=== PATIENT | male | born 1945 | race Caucasian/White ===

== ENCOUNTER 2020-09-05 10:59 | Emergency (ER) | payer MEDICARE, MEDICAID, SELFPAY ==
[2020-09-05] VITALS (7 sets, daily range): BP systolic 111–199; BP diastolic 78–97; PULSE 56–63; RESP 14–54; TEMP 37.1; O2SAT 95–98; BMI 40.2
--- NOTE | 2020-09-05 11:15 | XR_ITS ---
WS: [id number] Exam: XR chest 1V portable [id number] Date/Time of Exam: 09/05/2020 11:15 AM Reason For Exam: chest pain No priors. The lungs are clear and fully expanded. Minimal plaque atelectasis left base. Normal cardiomediastina l structures and bony elements. XR/XR chest 1V portable [id number] IMPRESSION: 1. No acute cardiopulmonary finding.
--- NOTE | 2020-09-05 11:16 | ECG_ITS ---
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 Measurements Intervals [place] Rate: 60 P: 40 [place]: 212 QRS: -55 QRSD: 125 T: 83 QT: 402 QTc: 404 Interpretive Statements SINUS RHYTHM WITH FIRST DEGREE AV BLOCK LEFT ANTERIOR FASCICULAR BLOCK [QRS AXIS <= -45, QR IN I, RS IN II] MODERATE VOLTAGE CRITERIA FOR LVH, CONSIDER NORMAL VARIANT [MEETS CRITERIA IN ONE OF: R(aVL), S(V1), R(V5), R(V5/V6)+S(V1)] LATERAL MYOCARDIAL INFARCTION , PROBABLY RECENT [40+ ms Q WAVE AND/OR ST/T ABNORMALITY IN I/aVL/V5/V6] ACUTE RI No previous ECG available for comparison Electronically Signed On 09-05-2020 23:49:00 BAG BUILDER by Sasha Polk M.D. [email or web address]/store/[id number]
[2020-09-05 12:22] LABS: Basophils # 0.1 10^3/uL (0.0-0.1); Basophils % 0.7 %; Eosinophils # 0.2 10^3/uL (0.0-0.8); Eosinophils % 2.5 %; Hematocrit 52.1 % (42.0-52.0); Hemoglobin 17.2 g/dL (11.7-16.6); Lymphocytes # 2.1 10^3/uL (0.8-4.8); Lymphocytes % 31.8 %; Mean Corpuscular Hemoglobin 30.1 pg (28.0-34.0); Mean Corpuscular Volume 91.1 fL (80-94); Monocytes # 0.4 10^3/uL (0.2-0.9); Monocytes % 6.3 %; Neutrophils # 3.93 10^3/uL (1.8-7.7); Neutrophils % 58.6 %; Nucleated Red Blood Cells % 0 %; Platelet Count 173 10^3/cmm (130-400); Red Blood Count 5.72 10^6/uL (4.1-5.3); White Blood Count 6.7 10^3/uL (4.0-10.0)
--- NOTE | 2020-09-05 12:24 | ED_ITS ---
HPI - Chest Pain General: Chief Complaint: Chest Pain Stated Complaint: CHEST PAINS, SENT FROM DR ALBERTS Time Seen by Provider: 09/05/20 12:03 History of Present Illness: HPI narrative: 75-year-old male presents emergency room from his primary care physician's office. He had been having chest pain intermittently for the last 6 weeks. Usually associated with activity he does in his yard such as light work feeding animals. Resolves in 5 to 30 minutes he has really noticed anything that makes it better or worse. He had been associating it with stomach upset. He was at his primary care doctor today to start the process to get evaluated for a hearing aid and was noted to have high blood pressure and upon further review his primary care provider listed that he been having chest pain. He was referred here he does have a slightly abnormal EKG it appears to be due to LVH. He is not having chest pain at this time. 2 years ago he had a stress test that he reports was normal he had no further follow-up from there. Not been taking anything for blood pressure recently. MD complaint: chest pain Onset (ago): week(s) Timing of current episode: episodic Prior episodes: Yes Onset: during exertion Pain location: left chest Pain radiation: back Severity: moderate Quality: heaviness Relieving factors: rest Exacerbating factors: exertion Associated symptoms: Deny abdominal pain, diaphoresis, dyspnea, fever(s), leg edema, nausea, palpitations, sense of impending doom, syncope or vomiting Treatment prior to arrival: none Review of Systems Const: Denies: fever(s) or diaphoresis ENMT: Denies: throat pain, ear or mastoid pain, nasal discharge or nasal congestion Card: Denies: palpitations or syncope Resp: Denies: dyspnea GI: Denies: abdominal pain, nausea or vomiting : Denies: flank pain, dysuria, urinary frequency or urinary urgency Skin/Breast: Denies: rash or pruritus PFSH ED PFSH: Medical History Hiatal hernia 1980s Psoriasis Surgical History History of tonsillectomy and adenoidectomy Social History Smoking and tobacco status: former smoker Alcohol intake: never Physical Exam Const: COMMON NORMALS: no acute distress GENERAL APPEARANCE: cooperative and comfortable ORIENTATION/CONSCIOUSNESS: Yes awake, Yes oriented to person, Yes oriented to place and Yes oriented to time HENMT: COMMON NORMALS: normocephalic, atraumatic and hearing grossly normal bilaterally HEAD & SCALP: normocephalic and atraumatic Eye: COMMON NORMALS: Equal, round and reactive pupils present, EOMs intact bilaterally, conjunctivae normal and no scleral icterus CONJUNCTIVA: Yes conjunctivae normal PUPIL: Yes Equal, round and reactive pupils present Neck/C-Spine: COMMON NORMALS: no JVD Lymph: LYMPHATIC: no lymphadenopathy noted and no lymphedema noted Resp: COMMON NORMALS: normal respiratory effort, No retractions, No use of accessory muscles and clear to auscultation bilaterally AUSCULTATION: clear to auscultation bilaterally Cardio: COMMON NORMALS: no JVD, regular rate, regular rhythm and No murmurs present (Cardio) RATE: regular rate RHYTHM: regular rhythm GI: COMMON NORMALS: Soft to palpation and No hepatosplenomegaly present AUSCULTATION: Yes normoactive bowel sounds PALPATION: Yes Soft to palpation, No Tenderness to palpation present (GI), No Guarding due to palpation present (GI) and Yes No hepatosplenomegaly present Extremity: COMMON NORMALS: normal to inspection, capillary refill normal, no clubbing, cyanosis or edema, no calf tenderness and no pedal edema Neuro: SENSORIUM/ORIENTATION: Yes oriented to person, Yes oriented to place and Yes oriented to time Skin: COMMON NORMALS: no rashes or lesions noted GENERAL SKIN EXAM: no rashes or lesions noted Course Vital Signs: Vital signs: Vital Signs Temperature 98.7 F 09/05/20 11:21 Pulse Rate 60 09/05/20 12:15 Respiratory Rate 16 09/05/20 12:15 Blood Pressure 155/89 09/05/20 12:15 Pulse Oximetry 97 09/05/20 12:15 MDM - Chest Pain MDM Narrative: Medical decision making narrative: Serial troponins are negative. Patient would prefer to go home fact he is quite upset that he is even been here this long. Discussed with him we had to do to test 2 hours apart in order to clear him initially. We will discharge him home on isosorbide mononitrate as well as sublingual nitro as needed for breakthrough chest pain if he has breakthrough chest pain he should return. Should also do an aspirin daily. Case management will set up an outpatient sestamibi stress test Lab Data: Labs: Lab Results 09/05/20 09/05/20 09/05/20 Range/Units 12:13 12:13 12:13 WBC 6.7 (4.0-10.0) 10^3/ uL RBC 5.72 H (4.1-5.3) 10^6/u L Hgb 17.2 H (11.7-16.6) g/dL Hct 52.1 H (42.0-52.0) % MCV 91.1 (80-94) fL MCH 30.1 (28.0-34.0) pg MCHC 33.0 (30.0-36.0) g/dL RDW 13.0 (12.1-15.1) % Plt Count 173 (130-400) 10^3/c mm MPV 9.0 (7.4-10.4) fL Neut % (Auto) 58.6 % Lymph % (Auto) 31.8 % Kingfisher % (Auto) 6.3 % Eos % (Auto) 2.5 % Baso % (Auto) 0.7 % Neut # (Auto) 3.93 (1.8-7.7) 10^3/u L Lymph # (Auto) 2.1 (0.8-4.8) 10^3/u L King[place]isher # (Auto) 0.4 (0.2-0.9) 10^3/u L Eos # (Auto) 0.2 (0.0-0.8) 10^3/u L Baso # (Auto) 0.1 (0.0-0.1) 10^3/u L Nucleated RBC % (a uto) 0 % Nucleated RBCs # 0.0 /100WBC Sodium 139 (136-145) mmol/L Potassium 4.5 (3.5-5.1) mmol/L Chloride 105 (98-107) mmol/L Carbon Dioxide 26 (22-29) mmol/L Anion Gap 12.5 (5-19) BUN 12 (8-23) mg/dL Creatinine 0.9 (0.7-1.2) mg/dL GFR Calculation Not Reportable Glucose 106 (65-115) mg/dL Calculated Osmolal ity 288 (285-295) mOsm/k g Calcium 9.1 (8.5-10.5) mg/dL Total Bilirubin 0.5 (0.15-1.2) mg/dL AST 16 (0-40) U/L ALT 14 (0-41) U/L Alkaline Phosphata se 93 (40-130) IU/L Creatine Kinase 89 (39-308) U/L Troponin T Baselin e 15 (0-15) ng/L Troponin T 120 Min hiren (0-15) ng/L Delta Troponin T (0-10) ABS# Total Protein 6.6 (6.6-8.7) g/dL Albumin 4.1 (3.5-5.2) g/dL Globulin 2.5 (1.3-4.6) g/dL 09/05/20 Range/Units 13:59 WBC (4.0-10.0) 10^3/ uL RBC (4.1-5.3) 10^6/u L Hgb (11.7-16.6) g/dL Hct (42.0-52.0) % MCV (80-94) fL MCH (28.0-34.0) pg MCHC (30.0-36.0) g/dL RDW (12.1-15.1) % Plt Count (130-400) 10^3/c mm MPV (7.4-10.4) fL Neut % (Auto) % Lymph % (Auto) % King[place]isher % (Auto) % Eos % (Auto) % Baso % (Auto) % Neut # (Auto) (1.8-7.7) 10^3/u L Lymph # (Auto) (0.8-4.8) 10^3/u L [place] # (Auto) (0.2-0.9) 10^3/u L Eos # (Auto) (0.0-0.8) 10^3/u L Baso # (Auto) (0.0-0.1) 10^3/u L Nucleated RBC % (a uto) % Nucleated RBCs # /100WBC Sodium (136-145) mmol/L Potassium (3.5-5.1) mmol/L Chloride (98-107) mmol/L Carbon Dioxide (22-29) mmol/L Anion Gap (5-19) BUN (8-23) mg/dL Creatinine (0.7-1.2) mg/dL GFR Calculation Glucose (65-115) mg/dL Calculated Osmolal ity (285-295) mOsm/k g Calcium (8.5-10.5) mg/dL Total Bilirubin (0.15-1.2) mg/dL AST (0-40) U/L ALT (0-41) U/L Alkaline Phosphata se (40-130) IU/L Creatine Kinase (39-308) U/L Troponin T Baselin e (0-15) ng/L Troponin T 120 Min hiren 14.70 (0-15) ng/L Delta Troponin T -0.30 L (0-10) ABS# Total Protein (6.6-8.7) g/dL Albumin (3.5-5.2) g/dL Globulin (1.3-4.6) g/dL Discharge Plan Discharge Patient Disposition: Home Clinical Impression: Hypertension, Angina pectoris Condition: Stable Prescriptions: New isosorbide mononitrate 30 mg tablet extended release 24 hr 30 mg PO DAILY Qty: 30 RF: 0 Aspirin Childrens 81 mg tablet,chewable 81 mg PO DAILY Qty: 30 RF: 0 nitroglycerin 0.4 mg tablet, sublingual 0.4 mg sublingual Q5M PRN (Reason: chest pain) Qty: 30 RF: 0 No Action betamethasone, augmented 0.05 % cream See Rx Instructions .ROUTE .COMPLEX RF: 0 Discharge Orders: Discharge ED (Routine); Ordered 09/05/20 Ordered By: Tod Araujo Referrals: Jessica Wilcox DO [Primary Care Provider] - Discharge Diet: Usual diet Discharge Activity: Limit activity as instructed Activity Restrictions/Additional Instructions: No strenuous activity until after cardiac evaluation is complete. You were started on isosorbide mononitrate and aspirin take both daily. Use sublingual nitro if you have further chest discomfort. Case management will call to set up a stress test. Coding Level of Care Code ED C[employer] Bi Developer for Rachid Fwd Exam Comprehensive
[2020-09-05 12:49] LABS: Troponin(5th) Baseline 15 ng/L (0-15)
[2020-09-05 12:51] LABS: Alanine Aminotransferase 14 U/L (0-41); Albumin Level 4.1 g/dL (3.5-5.2); Alkaline Phosphatase 93 IU/L (40-130); Aspartate Amino Transferase 16 U/L (0-40); Blood Urea Nitrogen 12 mg/dL (8-23); Calcium 9.1 mg/dL (8.5-10.5); Carbon Dioxide 26 mmol/L (22-29); Chloride 105 mmol/L (98-107); Creatine Phosphokinase 89 U/L (39-308); Globulin 2.5 g/dL (1.3-4.6); Glucose 106 mg/dL (65-115); Osmolality Calculated 288 mOsm/kg (285-295); Sodium 139 mmol/L (136-145); Total Bilirubin 0.5 mg/dL (0.15-1.2); Total Protein 6.6 g/dL (6.6-8.7)
[2020-09-05 13:16] LABS: Anion Gap 12.5 (5-19); Potassium 4.5 mmol/L (3.5-5.1)
--- NOTE | 2020-09-05 13:16 | ECG_ITS ---
[facility] Test Date: 2020-09-05 Pat Name: Terrence Cooper Department: Room: Gender: Male Principal Solutions Architect: : 1945 Requested By: Tod Diaz Order Number: [id number] Genaro MD: Sasha Polk M.D. Measurements Intervals [place] Rate: 56 P: 27 [place]: 199 QRS: -46 QRSD: 124 T: 100 QT: 384 QTc: 374 Interpretive Statements SINUS BRADYCARDIA LEFT ANTERIOR FASCICULAR BLOCK [QRS AXIS <= -45, QR IN I, RS IN II] MODERATE VOLTAGE CRITERIA FOR LVH, CONSIDER NORMAL VARIANT [MEETS CRITERIA IN ONE OF: R(aVL), S(V1), R(V5), R(V5/V6)+S(V1)] POSSIBLE LATERAL MYOCARDIAL INFARCTION , OF INDETERMINATE AGE [30 ms Q WAVE IN I/aVL/V5/V6] Compared to ECG 09/05/2020 12:03:38 Sinus rhythm no longer present First degree AV block no longer present Myocardial infarct finding still present Electronically Signed On 09-06-2020 0:02:34 NURSING TECHN by Sasha Polk M.D. [id number]
[2020-09-05] MEDS: aspirin 81 mg Chew Tablet 324 MG PO (14:37)
--- NOTE | 2020-09-07 10:13 | DCPLANNER ---
script manager had message to schedule an out patient stress test for patient. script manager faxed order for stress test to centralized scheduling.
--- NOTE | 2020-09-19 08:32 | DCPLANNER ---
Patient has a follow up appointment scheduled for Friday, September 29, 2020 at 12:15 for a out patient stress test.
--- NOTE | 2020-09-22 11:31 | DCPLANNER ---
Patient has a follow up appointment scheduled for September at 1:[address] Pérez. Clinic will call patient with appointment information.
--- NOTE | 2020-10-12 13:57 | DCPLANNER ---
Patient had a follow up appointment scheduled for 09.29.20 for an out patient stress test - patient did attend appointment. Patient had a follow up appointment scheduled for 10.05.20 with heart care - patient did attend appointment.
== END 2020-09-05 15:25 | disposition home or self-care (01) ==
PROVIDERS: Emergency Provider Family Medicine; PCP Family Medicine
DX: I10 Essential (primary) hypertension (principal); I20.9 Angina pectoris, unspecified; Z87.891 Personal history of nicotine dependence
CPT/HCPCS: 12345; 36415; 71045; 80053; 82550; 84484; 85025; 93005; 99283; 99284

== ENCOUNTER 2020-09-29 09:02 | Outpatient (CLI) | payer MEDICARE, MEDICAID, SELFPAY ==
[2020-09-29 09:48] VITALS: BMI 40.4
--- NOTE | 2020-09-29 09:48 | ECG_ITS ---
[facility] Test Date: 2020-09-29 Pat Name: Terrence Cooper Department: Room: Gender: Male Order Dispatcher: : 1945 Requested By: Tod Diaz Order Number: [id number] Genaro MD: ADAM MURPHY Interpretive Statements NAME OF STUDY: LEXISCAN SESTAMIBI STRESS TEST INDICATION: Chest Pain, NOTE: Please note that this is the electrocardiogram portion of the Lexiscan/Sestamibi stress test. The perfusion scan will be documented separately. DATA: Baseline heart rate was 58 beats per minute. Baseline blood pressure was 145/81 millimeters of mercury. Target heart rate was 145. Maximum heart rate achieved was 92. which was 63 % of the predicted target heart rate. Maximum blood pressure was 154/85 millimeters of mercury. The reason for ending the test was completion of the protocol. The patient did not experience any symptoms. ELECTROCARDIOGRAM: BASELINE: Sinus rhythm. Left axis. Otherwise, no ST-T changes suggestive of ischemia noted. No arrhythmia noted. After Lexiscan injection, no ST-T changes suggestive of ischemic noted. No arrhythmia noted. CONCLUSION: Please note due to baseline abnormality of the EKG specificity and sensitivity of the EKG portion of LexiScan MIBI stress test will be low 1. EKG not suggestive of ischemia 2. Lexiscan injection unremarkable. 3. Perfusion scan will be documented separately. Electronically Signed On 09-29-2020 13:28:55 STRATEGIC SOURCING SPECIALIST by ADAM MURPHY [email or web address])/store/[id number]
--- NOTE | 2020-09-29 09:49 | NMCV_ITS ---
NM issa perf SPECT r/s* [id number] Terrence Cooper Age: 75 Gender: M : 1945 Exam Date: 09/29/2020 11:03 Ordering Phys: Tod Araujo DO Technologist: CHIKI Nichols Exam Location: [facility] Indications: CHEST PAIN STRESS TEST Please see separate stress test report in [facility] for full findings IMAGE PROTOCOL Rest/Stress 1 Lexiscan Day Radiopharmaceutical Dose (mCi) Administration Site Administered by Rest: Tc-99m 10.8 IV CHIKI Mckeon Sestamibi Stress:Tc-99m 32.2 IV CHIKI Nichols Sestamiisatu Rest: 29-Sep-2020 60 Discovery 630 Stress: 29-Sep-2020 30 Discovery 630 0.4mg Lexiscan. Images obtained in supine and prone position. SPECT RESULTS Technical Quality: Excellent Raw Data Analysis: Normal Image Corrections: No attenuation or motion correction applied Summed Stress Score: 2 Summed Rest Score: 8 Summed Difference Score: 0 PERFUSION FINDINGS Small area of fixed perfusion defect noted in mid anterior/anteroseptal and apical lateral wall suggestive of old myocardial infarction versus scarring. No significant ischemia noted. FUNCTIONAL RESULTS (calculated via Gated SPECT) Stress Image LV EF (%): 48 Stress EDV (mL):167 TID: 0.99 Stress ESV (mL):87 Rest Image LV EF (%): 48 FUNCTIONAL FINDINGS: Global hypokinesis with mid anterior wall regional wall motion abnormality. IMPRESSIONS Small area of old myocardial infarction versus scarring noted in mid anterior/anteroseptal and apical lateral wall suggestive of old myocardial infarction versus scarring without significant rizwan-infarct ischemia. The study is negative for ischemia. EKG segment will be documented separately. Dante Neil MD (Electronically Signed) Final Date: 29 September 2020 13:18 S
[2020-09-29] MEDS: regadenoson 0.4 Mg/5 ml Syringe IVP (11:31)
[2020-09-29 11:45] VITALS: BP 148/76; PULSE 83
== END 2020-09-29 09:03 | disposition home or self-care (01) ==
LOC: CDL 09:04
PROVIDERS: PCP Family Medicine; Visit Provider Family Medicine
DX: R07.9 Chest pain, unspecified (principal); I25.2 Old myocardial infarction
CPT/HCPCS: 78452; 93017; A9500; J2785

== ENCOUNTER 2020-09-29 09:06 | Outpatient (CLI) | payer MEDICARE, MEDICAID, SELFPAY ==
--- NOTE | 2020-09-29 14:15 | USCV_ITS ---
Terrence Cooper Age: 75 Gender: M : 1945 Exam Date: 09/29/2020 10:21 Ordering Phys: Emiliana El MD Technologist: Trina Betancourt [place] [facility] [place]: HYPERTENSION BP: 143 / 67 HR: 79 Rhythm: Sinus Technical Quality: Adequate MEASUREMENTS (Male / Female) Normal Values 2D ECHO LV Diastolic Diameter PLAX 4.0 cm 4.2 - 5.9 / 3.9 - 5.3 cm LV Systolic Diameter PLAX 2.6 cm LV Chamber Size 3.3 cm IVS Diastolic Thickness 1.9 cm 0.6 - 1.0 / 0.6 - 0.9 cm IVS Systolic Thickness 2.0 cm LVPW Diastolic Thickness 2.6 cm 0.6 - 1.0 / 0.6 - 0.9 cm LVPW Systolic Thickness 2.3 cm RV Chamber Size 3.3 cm LVOT Diameter 2.1 cm LV Ejection Fraction 2D Teich 64.7 % LV Ejection Fraction MOD 2C 61.2 % LV Ejection Fraction 2C AL 64.4 % LA Diameter 4.4 cm LA Width 3.5 cm LA Height 5.0 cm RA Width 4.1 cm RA Height 4.6 cm Aorta at Sinotubular Diameter 3.7 cm M-MODE LV Diastolic Diameter MM 4.7 cm 4.2 - 5.9 / 3.9 - 5.3 cm LV Systolic Diameter MM 3.2 cm LV Ejection Fraction MM Teich 60.3 % IVS Diastolic Thickness MM 1.3 cm 0.6 - 1.0 / 0.6 - 0.9 cm IVS Systolic Thickness MM 1.7 cm LVPW Diastolic Thickness MM 1.4 cm 0.6 - 1.0 / 0.6 - 0.9 cm LVPW Systolic Thickness MM 1.9 cm Aortic Annulus Diameter 3.7 cm LA Ao Ratio MM 1.3 MV E Point Septal Separation 0.7 cm DOPPLER AV Peak Velocity 135.0 cm/s LVOT Peak Velocity 97.0 cm/s AV Area Cont Eq vti 2.8 cm squared AV Area Cont Eq pk 2.4 cm squared MV Area PHT 2.4 cm squared Mitral E to A Ratio 0.9 MV E' Velocity 33.5 cm/s Mitral E to MV E' Ratio 7.3 Mitral E to LV E' Lateral Ratio 7.4 Mitral E to LV E' Septal Ratio 7.2 TR Peak Velocity 212.5 cm/s TR Peak Gradient 18.1 mmHg TV Peak E Velocity 67.0 cm/s Right Atrial Pressure 3.0 mmHg Pulmonary Artery Systolic Pressu 21.1 mmHg PV Peak Velocity 80.0 cm/s RV Acceleration Time 0.2 s RV Ejection Time 0.4 s RV AcT/ET 0.5 FINDINGS Left Ventricle Normal left ventricular cavity size. Normal left ventricular systolic function. No regional wall motion abnormalities. Left ventricular ejection fraction is estimated at 60 %. Grade I/IV diastolic dysfunction (abnormal relaxation filling pattern), normal to mildly elevated filling pressures. Right Ventricle The right ventricle is normal in size and function. Right Atrium The right atrium is normal in size. Left Atrium The left atrium is normal in size. Mitral Valve Structurally normal mitral valve without significant stenosis or prolapse. There is no mitral regurgitation. Aortic Valve Mild aortic valve calcification. No aortic valve stenosis. Mild- to-moderate aortic valve regurgitation. Tricuspid Valve Structurally normal tricuspid valve without significant stenosis or regurgitation. Pulmonary artery systolic pressure is normal. Pulmonic Valve Structurally normal pulmonic valve without significant stenosis. There is no pulmonic regurgitation. Pericardium Normal pericardium without effusion. Aorta Normal ascending aorta dimension. CONCLUSIONS 1-Normal left ventricular cavity size. Normal left ventricular systolic function. No regional wall motion abnormalities. Left ventricular ejection fraction is estimated at 60 %. Grade I/IV diastolic dysfunction (abnormal relaxation filling pattern), normal to mildly elevated filling pressures. 2-Mild aortic valve calcification. No aortic valve stenosis. [id number] aortic valve regurgitation. 3-There is no pericardial effusion. 4-Pulmonary artery systolic pressure is within normal limits. 5-Right atrial pressure is around 5 mm of mercury. 6-There are no prior echocardiogram studies to compare. Dante Neil MD (Electronically Signed) Final Date: 29 September 2020 16:20 S
== END 2020-09-29 09:07 | disposition home or self-care (01) ==
LOC: RAD 09:12
PROVIDERS: PCP Family Medicine; Visit Provider Family Medicine
DX: I10 Essential (primary) hypertension (principal); I35.1 Nonrheumatic aortic (valve) insufficiency
CPT/HCPCS: 93306

== ENCOUNTER 2020-11-15 14:55 | Outpatient (CLI) | payer MEDICARE, MEDICAID, SELFPAY ==
--- NOTE | 2020-11-15 15:45 | USCV_ITS ---
Kenneth Terrence Age: 75 Gender: M : 1945 Exam Date: 11/15/2020 15:05 Ordering Phys: Emiliana El MD Technologist: Trina Betancourt [place] [facility] [place]: [place] dependence Risk Factors: Previous Vascular Surgery: Right Brachial BP: / Left Brachial BP: / Right Left Velocity (cm/s) Spectral Plaque Velocity (cm/s) Spectral Plaque Syst/Diast Broadening Syst/Diast Broadening 72.60/ 15.40 Prox CCA 100.00/ 13.60 79.50/ 17.90 Mid CCA 85.20 / 25.90 71.80/ 8.50 Distal CCA 81.50 / 19.70 86.90/ 16.30 Prox ICA 55.50 / 18.50 59.50/ 16.70 Mid ICA 91.30 / 24.70 60.60/ 18.80 Distal ICA 82.70 / 17.30 162.90 ECA 135.80 1.09 ICA/CCA 1.07 Antegrade Vertebral Antegrade 70.40/ 21.00 cm/s 96.30/ 21.00 cm/s Tri Subclavian Tri 98.70 97.50 CONCLUSIONS Right ICA stenosis <50%. Left ICA stenosis <50%. Normal antegrade Doppler flow noted in the right vertebral artery. Normal antegrade Doppler flow noted in the left vertebral artery. Eloy Michaud MD (Electronically Signed) Final Date: 16 November 2020 17:02 S
== END 2020-11-15 14:56 | disposition home or self-care (01) ==
LOC: RAD 15:00
PROVIDERS: PCP Family Medicine; Visit Provider Family Medicine
DX: Z87.891 Personal history of nicotine dependence (principal); I65.23 Occlusion and stenosis of bilateral carotid arteries
CPT/HCPCS: 93880

== ENCOUNTER → 2020-12-07 09:58 | Outpatient (BNVA) | payer MEDICARE, MEDICAID, SELFPAY | PROVIDERS: PCP Family Medicine; Visit Provider Family Medicine | DX: Z01.812 Encounter for preprocedural laboratory examination (principal) | CPT/HCPCS: 87635 ==

== ENCOUNTER 2020-12-11 08:44 | Outpatient (CLI) | payer MEDICARE, MEDICAID, SELFPAY ==
--- NOTE | 2020-12-11 09:31 | PFTS_ITS ---
Date of Study:12/11/20 Date of Dictation: MECHANICS: Forced vital capacity (FVC) is normal. Forced expiratory volume in one second (FEV1) is normal. FEV1/FVC is normal. FLOW VOLUME LOOP: Normal. LUNG VOLUMES: Total lung capacity (TLC) is normal. Residual volume (RV) is normal. DIFFUSING CAPACITY FOR CARBON MONOXIDE: Normal. INTERPRETATION: The prebronchodilator spirometry is normal. The lung volumes are normal. Gas exchange (DLCO) is normal. MTDD
== END 2020-12-11 08:45 | disposition home or self-care (01) ==
LOC: RT 08:47
PROVIDERS: PCP Family Medicine; Visit Provider Family Medicine
DX: R06.02 Shortness of breath (principal); Z87.891 Personal history of nicotine dependence
CPT/HCPCS: 94010; 94726; 94729

== ENCOUNTER 2021-11-22 16:14 | Emergency (ER) | payer MEDICARE, MEDICAID, SELFPAY ==
[2021-11-22 16:24] VITALS: BP 134/78; PULSE 112; RESP 16; TEMP 38; O2SAT 93; BMI 38.0
--- NOTE | 2021-11-22 17:20 | ED_ITS ---
Documented by User: JARED George 11/22/21 23:33 HPI - Male Genitourinary General: Chief complaint: Urogenital-Male Stated complaint: blood in urine Time Seen by Provider: 11/22/21 17:17 Source: patient Mode of arrival: ambulatory Limitations: no limitations History of Present Illness: Patient is a 76-year-old male who presents to ED today along with his for concerns of hematuria that began today. Patient is not complaining of any burning with urination. He has no flank pain. Patient states he chronically has nighttime urination and frequent urination that he attributes to old age . states he has been complaining of chills. He did have low-grade fever upon arrival to the ED at 100.4. States he is having some mild epigastric/upper abdominal pain. He states in the he was diagnosed with a hiatal hernia and states 2 weeks ago he got choked up on a food bolus states since that time he is having some soreness. She does not have any chest pain or shortness of breath. He does report chronic shortness of breath with exertion and a nonproductive cough following a COVID infection in July 2020. This is not changed at all. MD Complaint: other (hematuria) Onset (ago): hour(s) Exacerbating factors: none Associated symptoms: Reports hematuria; Deny dysuria, nausea or vomiting Review of Systems Const: Reports: fever(s) and chills; Denies: body aches, change in appetite, fatigue or malaise Eyes: Denies: change in vision or blurry vision ENMT: Denies: throat pain, odynophagia, nasal discharge or nasal congestion Card: Reports: dyspnea on exertion (chronic since COVID in July 2020); Denies: chest pain, palpitations, irregular heart rhythm, edema, swelling of feet/ankles, lightheadedness, syncope or pre-syncope Resp: Reports: non-productive cough (chronic since COVID in July 2020); Denies: dyspnea, wheezing, hemoptysis or chest congestion GI: Reports: abdominal pain; Denies: nausea, vomiting or diarrhea : Reports: nocturia (chronic) and hematuria; Denies: flank pain, difficulty urinating, dysuria, urinary frequency, urinary urgency, testicular pain, testicular mass or scrotal swelling Musc: Denies: neck pain, back pain, extremity pain or joint pain Skin/Breast: Denies: rash Neuro: Denies: headache(s), numbness in extremities, weakness in extremities or sensory changes PFSH ED PFSH: Medical History CAD (coronary artery disease) Diastolic CHF Hiatal hernia 1980s Psoriasis Surgical History History of tonsillectomy and adenoidectomy Social History Smoking and tobacco status: former smoker Alcohol intake: never Physical Exam Const: COMMON NORMALS: no acute distress, patient oriented x3, no limitations and alert GENERAL APPEARANCE: cooperative NUTRITIONAL APPEARANCE: overweig ht ORIENTATION/CONSCIOUSNESS: Yes awake, Yes oriented to person, Yes oriented to place and Yes oriented to time OTHER: obviously jaundiced HENMT: COMMON NORMALS: normocephalic and atraumatic HEAD & SCALP: normocephalic and atraumatic Eye: SCLERA: scleral abnormal Neck/C-Spine: COMMON NORMALS: full ROM, no lymphadenopathy and no meningeal signs Resp: COMMON NORMALS: normal respiratory effort and clear to auscultation bilaterally AUSCULTATION: clear to auscultation bilaterally Cardio: COMMON NORMALS: regular rhythm RATE: tachycardic (pt mildly febrile) RHYTHM: regular rhythm GI: COMMON NORMALS: Normal to inspection, nondistended, normoactive bowel sounds present, Soft to palpation, No hepatosplenomegaly present and no masses INSPECTION: Yes normal to inspection AUSCULTATION: Yes normoactive bowel sounds PALPATION: Yes Soft to palpation, Yes Tenderness to palpation present (GI) (mild upper abdominal pain-non surgical exam) and Yes No hepatosplenomegaly present : COMMON NORMALS: Yes no CVA tenderness BLADDER/KIDNEY EXAM: Yes no CVA tenderness Back/Pelvis: COMMON NORMALS: no CVA tenderness Extremity: COMMON NORMALS: normal to inspection GENERAL: Yes normal exam except as noted Neuro: ADDISON COMA SCALE: document GCS findings Cedar coma scale eye opening: Spontaneous Cedar coma scale verbal response: Orientated Cedar coma scale motor response: Obey commands Addison coma scale total score: 15 COMMON NORMALS: patient oriented x3, moves all extremities, no focal motor deficits and no sensory deficits noted SENSORIUM/ORIENTATION: Yes alert, Yes oriented to person, Yes oriented to place and Yes oriented to time MENINGEAL SIGNS: Yes no meningeal signs Skin: COMMON NORMALS: no rashes or lesions noted GENERAL SKIN EXAM: no rashes or lesions noted and jaundice Course ED course: Patient's bilirubin coming back critically elevated at 12.0. He has elevated liver enzymes. Pending lipase. My suspicion is that patient's hematuria he felt like he was visualizing was actually excess bilirubin. Will order CT abdomen/pelvis and US gallbladder for further evaluation. Vital Signs: Vital signs: Vital Signs Temperature 98.2 F 11/22/21 20:54 Pulse Rate 89 11/22/21 20:54 Respiratory Rate 18 11/22/21 20:54 Blood Pressure 125/65 11/22/21 20:54 Pulse Oximetry 92 11/22/21 20:54 [facility] - Male Medical Decision Making Patient is a nice 76-year-old male here for his initial concern of hematuria. Patient was not having any urinary complaints. On physical exam he is obviously jaundiced. Labs showing a critically elevated bilirubin at 12.0 along with other LFT elevations. His lipase is normal. He does have tenderness to his upper abdomen but surprisingly not as much as I would suspect given his CT findings. Patient has cholelithiasis and choledocholithiasis with CBD dilation of 1.5 cm. He is mildly tachycardic with a low-grade fever. He has a normal white count with normal lactate. At this time patient will need to be transferred to a facility with ERCP capability. I have spoken to [facility] who accepts patient. Case was discussed with Dr. Zambrano who agrees with plan for patient. He also evaluated patient. Lab Data : 11/22/21 17:43 11/22/21 17:43 Radiology Impressions Chest/Abdomen X-ray 11/22/21 17:37 IMPRESSION: No acute findings. Abdomen/Pelvis CT 11/22/21 18:57 IMPRESSION: Cholelithiasis and choledocholithiasis with dilation of common bile duct up to 1.5 cm and mild intrahepatic biliary dilation. COMMENTS: Consistent with the [place] [employer]'s Incidental Findings Committee white paper (J Am Elidia Radiol 2018): Any incidental renal lesion less than 1 cm or classified as too small to characterize, or any incidental cystic renal lesion characterized as simple-appearing, is likely benign. No follow-up imaging is recommended for these lesions per consensus recommendations based on imaging criteria. Gallbladder Ultrasound 11/22/21 18:57 IMPRESSION: Cholelithiasis with dilation of the common bile duct. Please see same day CT report which demonstrates choledocholithiasis. Laboratory Results WBC 8.3 10^3/uL (4.0-10.0) 11/22/21 17:43 RBC 5.72 10^6/uL (4.1-5.3) H 11/22/21 17:43 Hgb 17.3 g/dL (11.7-16.6) H 11/22/21 17:43 Hct 50.7 % (42.0-52.0) 11/22/21 17:43 MCV 88.6 fl (80-94) 11/22/21 17:43 MCH 30.2 pg (28.0-34.0) 11/22/21 17:43 MCHC 34.1 g/dL (30.0-36.0) 11/22/21 17:43 RDW 14.1 % (12.1-15.1) 11/22/21 17:43 Plt Count 230 10^3/cmm (130-400) 11/22/21 17:43 MPV 9.0 fL (7.4-10.4) 11/22/21 17:43 Neut % (Auto) 82.6 % 11/22/21 17:43 Lymph % (Auto) 8.6 % 11/22/21 17:43 [place] % (Auto) 8.0 % 11/22/21 17:43 Eos % (Auto) 0.0 % 11/22/21 17:43 Baso % (Auto) 0.4 % 11/22/21 17:43 Neut # (Auto) 6.85 10^3/uL (1.8-7.7) 11/22/21 17:43 Lymph # (Auto) 0.7 10^3/uL (0.8-4.8) L 11/22/21 17:43 [place] # (Auto) 0.7 10^3/uL (0.2-0.9) 11/22/21 17:43 Eos # (Auto) 0.0 10^3/uL (0.0-0.8) 11/22/21 17:43 Baso # (Auto) 0.0 10^3/uL (0.0-0.1) 11/22/21 17:43 Nucleated RBC % (auto) 0 % 11/22/21 17:43 Nucleated RBCs # 0.0 /100WBC 11/22/21 17:43 Sodium 135 mmol/L (136-145) L 11/22/21 17:43 Potassium 4.3 mmol/L (3.5-5.1) 11/22/21 17:43 Chloride 100 mmol/L (98-107) 11/22/21 17:43 Carbon Dioxide 18 mmol/L (22-29) L 11/22/21 17:43 Anion Gap 21.3 (5-19) H 11/22/21 17:43 BUN 17 mg/dL (8-23) 11/22/21 17:43 Creatinine 0.8 mg/dL (0.7-1.2) 11/22/21 17:43 GFR Calculation Not Reportable 11/22/21 17:43 Glucose 125 mg/dL (65-115) H 11/22/21 17:43 Calculated Osmolality 283 mOsm/kg (285-295) L 11/22/21 17:43 Lactic Acid 1.2 mmol/L (0.5-2.2) 11/22/21 17:46 Calcium 9.4 mg/dL (8.5-10.5) 11/22/21 17:43 Total Bilirubin 12.0 mg/dL (0.15-1.2) H* 11/22/21 17:43 AST 162 U/L (0-40) H 11/22/21 17:43 ALT 263 U/L (0-41) H 11/22/21 17:43 Alkaline Phosphatase 615 IU/L (40-130) H 11/22/21 17:43 Total Protein 7.3 g/dL (6.6-8.7) 11/22/21 17:43 Albumin 3.9 g/dL (3.5-5.2) 11/22/21 17:43 Globulin 3.4 g/dL (1.3-4.6) 11/22/21 17:43 Lipase 29 U/L (13-60) 11/22/21 17:43 Urine Color Dark yellow (Yellow) 11/22/21 16:30 Urine Appearance Clear (CLEAR) 11/22/21 16:30 Urine pH 5 (5-7) 11/22/21 16:30 Ur Specific [place] 1.020 (1.005-1.030) 11/22/21 16:30 Urine Protein 1+ (Negative) H 11/22/21 16:30 Urine Glucose (UA) Norm (Normal) 11/22/21 16:30 Urine Ketones 1+ (Negative) H 11/22/21 16:30 Urine Blood Neg (Negative) 11/22/21 16:30 Urine Nitrate Negative (Negative) 11/22/21 16:30 Urine Bilirubin 3+ (Negative) H 11/22/21 16:30 Urine Urobilinogen 4+ mg/dL (Negative) H 11/22/21 16:30 Ur Leukocyte Esterase Negative (Negative) 11/22/21 16:30 Urine RBC Rare /hpf (0-2) 11/22/21 16:30 Urine WBC Rare /hpf (0-5) 11/22/21 16:30 Ur Squamous Epith Cells Rare /hpf (0-5) 11/22/21 16:30 Amorphous Sediment 1+ /hpf 11/22/21 16:30 Urine Bacteria None /hpf (NONE) 11/22/21 16:30 Urine Mucus 2+ /hpf 11/22/21 16:30 Discharge Plan Discharge Patient Disposition: Xfer Short-Term Hosp Clinical Impression: Cholelithiasis with choledocholithiasis Condition: Stable Referrals: Emiliana El MD [Primary Care Provider] - Coding Level of Care Code ED Enterprise Sales Person for Chg Fwd Exam Comprehensive Documented by User: Roe Zambrano MD 11/23/21 09:40 HPI - Male Genitourinary General: Chief complaint: Urogenital-Male Stated complaint: blood in urine Time Seen by Provider: 11/22/21 17:17 PFSH ED PFSH: Medical History CAD (coronary artery disease) Diastolic CHF Hiatal hernia 1980s Psoriasis Surgical History History of tonsillectomy and adenoidectomy Social History Smoking and tobacco status: former smoker Alcohol intake: never Physical Exam Neuro: ADDISON COMA SCALE: document GCS findings Addison coma scale total score: 15 Course Vital Signs: Vital signs: Vital Signs Temperature 98.2 F 11/22/21 20:54 Pulse Rate 89 11/22/21 20:54 Respiratory Rate 18 11/22/21 20:54 Blood Pressure 125/65 11/22/21 20:54 Pulse Oximetry 92 11/22/21 20:54 [facility] - Male Medical Decision Making Patient is a nice 76-year-old male here for his initial concern of hematuria. Patient was not having any urinary complaints. On physical exam he is obviously jaundiced. Labs showing a critically elevated bilirubin at 12.0 along with other LFT elevations. His lipase is normal. He does have tenderness to his upper abdomen but surprisingly not as much as I would suspect given his CT findings. Patient has cholelithiasis and choledocholithiasis with CBD dilation of 1.5 cm. He is mildly tachycardic with a low-grade fever. He has a normal white count with normal lactate. At this time patient will need to be transferred to a facility with ERCP capability. I have spoken to [facility] who accepts patient. Case was discussed with Dr. Zambrano who agrees with plan for patient. He also evaluated patient. I discussed this case with JARED George. I personally saw and evaluated the patient. I have reviewed documentation and agree as documented except as noted, I reviewed labs and imaging studies. I reperformed [place] precautions of E/M. Patient requires transfer for cholecystitis with choledocholithiasis. Roe Zambrano MD Emergency Medicine Lab Data : 11/22/21 17:43 11/22/21 17:43 Radiology Impressions Chest/Abdomen X-ray 11/22/21 17:37 IMPRESSION: No acute findings. Abdomen/Pelvis CT 11/22/21 18:57 IMPRESSION: Cholelithiasis and choledocholithiasis with dilation of common bile duct up to 1.5 cm and mild intrahepatic biliary dilation. COMMENTS: Consistent with the [place] [employer]'s Incidental Findings Committee white paper (J Am Elidia Radiol 2018): Any incidental renal lesion less than 1 cm or classified as too small to characterize, or any incidental cystic renal lesion characterized as simple-appearing, is likely benign. No follow-up imaging is recommended for these lesions per consensus recommendations based on imaging criteria. Gallbladder Ultrasound 11/22/21 18:57
--- NOTE | 2021-11-22 17:37 | XRR_ITS ---
PROCEDURE INFORMATION: Exam: XR Complete Acute Abdomen Series Including Chest Exam date and time: 11/22/2021 5:54 PM Age: 76 years old Clinical indication: Fever and other: Hematuria; Prior surgery; Additional info: HX hiatial hernia; Fevers TECHNIQUE: Imaging protocol: XR complete acute abdomen series, including 2 or more views of the abdomen and a single view chest. COMPARISON: CR XR chest 1V portable [id number] 09/05/2020 11:45 AM FINDINGS: Lungs: Normal. No consolidation. Pleural spaces: Normal. No pleural effusions. No pneumothorax. Heart/Mediastinum: Normal. No cardiomegaly. Gastrointestinal tract: Normal. No bowel dilation. Intraperitoneal space: Normal. No free air. Bones/joints: No acute fracture. Soft tissues: Normal. XR/XR acute abdomen series [id number] IMPRESSION: No acute findings.
[2021-11-22 17:52] LABS: Basophils % 0.4 %; Hematocrit 50.7 % (42.0-52.0); Hemoglobin 17.3 g/dL (11.7-16.6); Lymphocytes # 0.7 10^3/uL (0.8-4.8); Lymphocytes % 8.6 %; Mean Corpuscular HGB Conc 34.1 g/dL (30.0-36.0); Mean Corpuscular Hemoglobin 30.2 pg (28.0-34.0); Mean Corpuscular Volume 88.6 fl (80-94); Monocytes # 0.7 10^3/uL (0.2-0.9); Neutrophils # 6.85 10^3/uL (1.8-7.7); Neutrophils % 82.6 %; Nucleated Red Blood Cells % 0 %; Platelet Count 230 10^3/cmm (130-400); Red Blood Count 5.72 10^6/uL (4.1-5.3); Red Cell Distribution Width 14.1 % (12.1-15.1); White Blood Count 8.3 10^3/uL (4.0-10.0)
[2021-11-22 18:40] LABS: Alanine Aminotransferase 263 U/L (0-41); Albumin Level 3.9 g/dL (3.5-5.2); Alkaline Phosphatase 615 IU/L (40-130); Anion Gap 21.3 (5-19); Aspartate Amino Transferase 162 U/L (0-40); Blood Urea Nitrogen 17 mg/dL (8-23); Calcium 9.4 mg/dL (8.5-10.5); Carbon Dioxide 18 mmol/L (22-29); Chloride 100 mmol/L (98-107); Creatinine Clr Calc Pharmacy 108.1804; Globulin 3.4 g/dL (1.3-4.6); Glucose 125 mg/dL (65-115); Osmolality Calculated 283 mOsm/kg (285-295); Potassium 4.3 mmol/L (3.5-5.1); Sodium 135 mmol/L (136-145); Total Protein 7.3 g/dL (6.6-8.7)
[2021-11-22] MEDS: acetaminophen 500 mg Tablet PO ×2 (18:47→18:48)
[2021-11-22 18:52] LABS: Lactic Sepsis W/Reflex 1.2 mmol/L (0.5-2.2)
--- NOTE | 2021-11-22 18:57 | CTR_ITS ---
PROCEDURE INFORMATION: Exam: CT Abdomen And Pelvis With Contrast Exam date and time: 11/22/2021 7:06 PM Age: 76 years old Clinical indication: Abdominal pain; Patient HX: Epigastric pain with hematuria; Additional info: Upper abdominal pain; Elevated lfts TECHNIQUE: Imaging protocol: Computed tomography of the abdomen and pelvis with contrast. Radiation optimization: All CT scans at this facility use at least one of these dose optimization techniques: automated exposure control; mA and/or kV adjustment per patient size (includes targeted exams where dose is matched to clinical indication); or iterative reconstruction. Contrast material: OMNI 300; Contrast volume: 95 ml; Contrast route: INTRAVENOUS (IV); COMPARISON: CR (ABDOMEN, ) 11/22/2021 5:54 PM RADIATION DOSE METRICS: Total DLP (mGy-cm): 2015.78 FINDINGS: Liver: Normal. No mass. Gallbladder and bile ducts: Cholelithiasis and choledocholithiasis within the distal common bile duct. The common bile duct is dilated up to 1.5 cm. Mild intrahepatic biliary dilation. Mild distention of the gallbladder without wall thickening. Pancreas: Normal. No ductal dilation. Spleen: Normal. No splenomegaly. Adrenal glands: Normal. No mass. Kidneys and ureters: Left peripelvic cysts noted. Moderate atrophy of the kidneys. No hydronephrosis. Stomach and bowel: Diverticulum noted off the proximal duodenum measuring 4 cm. Colonic diverticulosis. No obstruction. No mucosal thickening. Appendix: No evidence of appendicitis. Intraperitoneal space: Unremarkable. No free air. No significant fluid collection. Vasculature: Unremarkable. No abdominal aortic aneurysm. Lymph nodes: Unremarkable. No enlarged lymph nodes. Urinary bladder: Unremarkable as visualized. Reproductive: Unremarkable as visualized. Bones/joints: No acute fracture. Soft tissues: Unremarkable. CT/CT abdomen pelvis w con* [id number] IMPRESSION: Cholelithiasis and choledocholithiasis with dilation of common bile duct up to 1.5 cm and mild intrahepatic biliary dilation. COMMENTS: Consistent with the [place] [employer]'s Incidental Findings Committee white paper (J Am Elidia Radiol 2018): Any incidental renal lesion less than 1 cm or classified as too small to characterize, or any incidental cystic renal lesion characterized as simple-appearing, is likely benign. No follow-up imaging is recommended for these lesions per consensus recommendations based on imaging criteria.
--- NOTE | 2021-11-22 18:57 | USR_ITS ---
PROCEDURE INFORMATION: Exam: US Abdomen, Limited; Right Upper Quadrant Exam date and time: 11/22/2021 7:13 PM Age: 76 years old Clinical indication: Pain and abnormal findings; Abnormal lab test; Abnormal function test of other organs/systems; Abdominal pain; Additional info: Upper ab pain; Elevated lfts TECHNIQUE: Imaging protocol: US abdomen. Real time ultrasound with image documentation. Limited exam focused on the right upper quadrant. COMPARISON: CT abdomen pelvis w con* [id number] 11/22/2021 7:06 PM FINDINGS: Liver: Normal. No masses. Gallbladder: Multiple shadowing gallstones. There is no gallbladder wall thickening. Common bile duct: The common bile duct measures 1.3 cm at its mid/distal aspect. Pancreas: Poorly evaluated due to overlying bowel gas and soft tissues. Right kidney: The right kidney measures 11.7 cm in length. No mass. No hydronephrosis. US/US gall bladder [id number] IMPRESSION: Cholelithiasis with dilation of the common bile duct. Please see same day CT report which demonstrates choledocholithiasis.
[2021-11-22 19:03] LABS: Protein Urine 1+ (Negative); Urine Appearance Clear (CLEAR); Urine Color Dark Yellow (Yellow); pH Urine 5 (5-7)
[2021-11-22 19:04] LABS: Add Urine Microscopic? YES; Amorphous Sediment Urine 1+ /hpf; Bilirubin Urine 3+ (Negative); Blood Urine Neg (Negative); Glucose Urine UA Norm (Normal); Ketones Urine 1+ (Negative); Leukocyte Esterase Urine Negative (Negative); Mucus Urine 2+ /hpf; Nitrate Urine Negative (Negative); RBC Urine RARE /hpf (0-2); Squamous Epithelial Cell Urine RARE /hpf (0-5); Urobilinogen Urine 4+ mg/dL (Negative); WBC Urine RARE /hpf (0-5)
[2021-11-22 19:05] LABS: Add Urine Culture? No
[2021-11-22] MEDS: iohexol 300 mg/mL 100 mL Btl IV (19:07)
[2021-11-22 19:18] LABS: Lipase 29 U/L (13-60)
[2021-11-22] MEDS: piperacillin-tazobactam 3.375 GM in sodium chloride 0.9% (plus) 50 ML IV (19:45)
--- NOTE | 2021-11-22 20:09 | PC.NURSE ---
patient received to room report received.
[2021-11-22 20:54] VITALS: BP 125/65; PULSE 89; RESP 18; TEMP 36.8; O2SAT 92
== END 2021-11-23 00:47 | disposition short-term general hospital (02) ==
PROVIDERS: Emergency Provider Physician Assistant; PCP Family Medicine
DX: K80.70 Calculus of gallbladder and bile duct without cholecystitis without obstruction (principal); I25.10 Atherosclerotic heart disease of native coronary artery without angina pectoris; I50.9 Heart failure, unspecified; Z87.891 Personal history of nicotine dependence
CPT/HCPCS: 36415; 74022; 74177; 76705; 80053; 81001; 83605; 83690; 85025; 87040; 96374; 99285; J2543; Q9967

== ENCOUNTER → 2021-12-05 16:20 | Outpatient (BNVA) | payer MEDICARE, MEDICAID, SELFPAY | PROVIDERS: PCP Family Medicine; Visit Provider Family Medicine | DX: K81.9 Cholecystitis, unspecified (principal); R82.2 Biliuria; K59.00 Constipation, unspecified | CPT/HCPCS: 80053; 81003; 83690; 85025 ==

== ENCOUNTER 2021-12-06 05:38 | Outpatient (CLI) | payer MEDICARE, MEDICAID, SELFPAY ==
--- NOTE | 2021-12-06 06:00 | USR_ITS ---
PROCEDURE INFORMATION: Exam: US Abdomen, Limited; Right Upper Quadrant Exam date and time: 12/06/2021 5:55 AM Age: 76 years old Clinical indication: Abdominal pain; Additional info: R10.11 - right upper quadrant pain TECHNIQUE: Imaging protocol: US abdomen. Real time ultrasound with image documentation. Limited exam focused on the right upper quadrant. COMPARISON: US gall bladder [id number] 11/22/2021 7:13 PM FINDINGS: Liver: Longitudinal liver diameter 17.2 cm. Gallbladder: Measured gallbladder wall 0.49 cm. Cholelithiasis. Common bile duct: Common bile duct diameter measures 0.62 cm. Pancreas: The pancreas is not well visualized due to overlapping bowel gas. Right kidney: The right kidney measures 5.2 x 5.7 by 12.5 cm. Right renal cortex measures 1.1 cm. Limited visualization of the right renal sinus. Mild dilatation of collecting structures of the right kidney. The Aorta: Inferior vena cava and aorta are not well visualized due to bowel gas. Portal venous: Normal directional flow within the main portal vein. Intraperitoneal space: No focal free fluid. US/US gall bladder [id number] IMPRESSION: 1. Cholelithiasis with gallbladder wall thickening which could be on the basis of primary or secondary cholecystitis. 2. Mildly accentuated extrahepatic bile ducts with no current demonstration or visualization of shadowing to suggest choledocholithiasis. 3. Limited visualization of the pancreas, inferior vena cava and abdominal aorta. 4. Fullness of collecting structures within the right kidney.
== END 2021-12-06 05:39 | disposition home or self-care (01) ==
LOC: RAD 05:38
PROVIDERS: PCP Family Medicine; Visit Provider Surgery
DX: R10.11 Right upper quadrant pain (principal); K80.20 Calculus of gallbladder without cholecystitis without obstruction
CPT/HCPCS: 76705

== ENCOUNTER 2021-12-06 06:18 | Emergency (ER) | payer MEDICARE, MEDICAID, SELFPAY ==
[2021-12-06] VITALS (19 sets, daily range): BP systolic 102–144; BP diastolic 61–98; PULSE 20–160; RESP 16–34; TEMP 35.8–37.6; O2SAT 92–96; BMI 38.2
--- NOTE | 2021-12-06 06:47 | ECG_ITS ---
[facility] Test Date: 2021-12-06 Pat Name: Terrence Cooper Department: Room: Gender: Male Features Reporter: : 1945 Requested By: Tod Diaz Order Number: [id number] Genaro MD: Keeley Pérez M.D. 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 [id number]
--- NOTE | 2021-12-06 06:47 | CTR_ITS ---
PROCEDURE INFORMATION: Exam: CT Abdomen And Pelvis With Contrast Exam date and time: 12/06/2021 7:19 AM Age: 76 years old Clinical indication: Abdominal pain; Generalized; Additional info: Abd pain TECHNIQUE: Imaging protocol: Computed tomography of the abdomen and pelvis with contrast. Radiation optimization: All CT scans at this facility use at least one of these dose optimization techniques: automated exposure control; mA and/or kV adjustment per patient size (includes targeted exams where dose is matched to clinical indication); or iterative reconstruction. Contrast material: OMNI 300; Contrast volume: 95 ml; Contrast route: INTRAVENOUS (IV); COMPARISON: CT abdomen pelvis w con* [id number] 11/22/2021 7:06 PM RADIATION DOSE METRICS: Total DLP (mGy-cm): 1774.76 FINDINGS: Lungs: Pleuroparenchymal scarring or atelectasis lower lungs. Liver: Normal. No mass. Gallbladder and bile ducts: Cholelithiasis. There may be calculi within the cystic duct no current visualization common bile duct calculus. Mildly accentuated common bile duct 1.2 cm. Pancreas: Normal. No ductal dilation. Partial obscuration and limited definition of pancreas head due to the inflammatory process in the right upper abdomen. Spleen: Normal. No splenomegaly. Adrenal glands: Normal. No mass. Kidneys and ureters: Mild left pelvicaliectasis. There is no left ureterectasis. Mild right pelvicaliectasis and most proximal right ureterectasis with may be partially or mildly obstructed at the level of the inflammatory process in the right abdomen. Stomach and bowel: Likely primary or secondary duodenitis with wall thickening and mucosal irregularity or edema of the duodenum diffusely and duodenal jejunal junction. Due to the suspected abscess in the right abdomen limited distinction of the previously demonstrated duodenal diverticulum most probably extending medially. Appendix: The appendix is visualized grossly unremarkable with likely adjacent secondary mild stranding from the right abdominal process. Intraperitoneal space: No diffuse free air. Vasculature: Unremarkable. No abdominal aortic aneurysm. Lymph nodes: Unremarkable. No enlarged lymph nodes. Urinary bladder: Unremarkable as visualized. Reproductive: Unremarkable as visualized. Bones/joints: Degenerative change of the spine. Soft tissues: Large area of multilobular extended suspected right abdominal mesenteric abscess containing extensive collections of gas situated adjacent to bowel and partially involving the retroperitoneum adjacent to the iliopsoas musculature and lower right pericolic gutter. CT/CT abdomen pelvis w con* [id number] IMPRESSION: 1. Large abdominal mesenteric and large extent of right pericolic gutter and low right pelvic abscess. 2. Cholelithiasis. 3. Mild right pelvicaliectasis and proximal to mid ureterectasis with suspected mild ureteral obstruction at the level of inflammatory process in the right abdomen. 4. Suspect secondary duodenitis.
--- NOTE | 2021-12-06 06:47 | ED_ITS ---
HPI - Abdominal Pain General: Chief Complaint: Abdominal Pain Stated Complaint: Just had Gall stones removed, ABD Pains Time Seen by Provider: 12/06/21 06:24 Source: patient Mode of arrival: ambulatory Limitations: no limitations History of Present Illness: 76-year-old male presents emergency room with complaint of abdominal pain for the last several days. He previously had a ERCP with removal of common bile duct stone. He is not had a bowel movement for 3 to 4 days and his states he has basically been in bed for the last 10 days. He denies any vomiting denies any hematochezia or melena. He is not had a fever at all denies any chest pain on arrival here he is tachycardic and somewhat ta chypneic. He refers most of his pain to the epigastric area in the right upper quadrant. He denies fever sweats chills dysuria urgency or frequency. MD elicited complaint: abdominal pain Pertinent past history: none Onset (ago): day(s) (10) Pain Consistency: constant Location: Epigastric Severity: moderate Quality: cramping Radiation: none Migration to: RUQ Exacerbating factors: nothing Relieving factors: nothing Associated Symptoms: Reports bloating, constipation, GI cramping and dyspepsia; Denies anorexia, belching, change in bowel habits, change in stool character, chills, coffee ground emesis, diarrhea, dysuria, excessive flatus, fever(s), heartburn, hematochezia, hematuria, hematemesis, fecal incontinence, loose stools, melena, nausea, poor appetite, syncope and vomiting Review of Systems Const: Denies: fever(s) or chills Card: Denies: syncope GI: Reports: abdominal pain, constipation, bloating and GI cramping; Denies: nausea, vomiting, hematemesis, coffee ground emesis, heartburn, diarrhea, belching, excessive flatus, fecal incontinence, change in bowel habits, change in stool character, hematochezia or melena : Denies: dysuria or hematuria PFSH ED PFSH: Medical History CAD (coronary artery disease) Diastolic CHF Hiatal hernia 1980s Psoriasis Surgical History History of tonsillectomy and adenoidectomy Social History Smoking and tobacco status: former smoker Alcohol intake: never Physical Exam Const: COMMON NORMALS: no acute distress GENERAL APPEARANCE: cooperative and comfortable ORIENTATION/CONSCIOUSNESS: Yes awake, Yes oriented to person, Yes oriented to place and Yes oriented to time HENMT: COMMON NORMALS: normocephalic, atraumatic and hearing grossly normal bilaterally HEAD & SCALP: normocephalic and atraumatic Neck/C-Spine: COMMON NORMALS: no JVD Resp: COMMON NORMALS: normal respiratory effort, No retractions, No use of accessory muscles and clear to auscultation bilaterally AUSCULTATION: clear to auscultation bilaterally Cardio: COMMON NORMALS: no JVD, regular rate, regular rhythm and No murmurs present (Cardio) RATE: regular rate RHYTHM: regular rhythm GI: COMMON NORMALS: No hepatosplenomegaly present AUSCULTATION: Yes normoactive bowel sounds PALPATION: Yes Tenderness to palpation present (GI), No Guarding due to palpation present (GI) and Yes No hepatosplenomegaly present : COMMON NORMALS: Yes no CVA tenderness BLADDER/KIDNEY EXAM: Yes no CVA tenderness Back/Pelvis: COMMON NORMALS: no CVA tenderness Extremity: COMMON NORMALS: normal to inspection, capillary refill normal, no clubbing, cyanosis or edema, no calf tenderness and no pedal edema Neuro: SENSORIUM/ORIENTATION: Yes oriented to person, Yes oriented to place and Yes oriented to time Skin: COMMON NORMALS: no rashes or lesions noted GENERAL SKIN EXAM: no rashes or lesions noted Course Vital Signs: Vital signs: Vital Signs Temperature 99.7 F H 12/06/21 09:02 Pulse Rate 90 12/06/21 09:02 Respiratory Rate 18 12/06/21 09:02 Blood Pressure 128/67 12/06/21 09:02 Pulse Oximetry 94 12/06/21 09:02 MDM - Abdominal Pain Medical Decision Making During the course of work-up patient went into A. fib with RVR which was treated with a bolus of Cardizem and drip. His rate is well controlled on 5 mg/h at the moment. We will continue this for now. Large right-sided abdominal abscess. Cultures done started on Zosyn. Will transfer back to emergency because of the recent ERCP concerned about complication from this procedure. He was supposed to have a cholecystectomy in the next week or 2 locally. Discussed with him marky jones will address that at [facility]. Discussed with transfer service at [facility] Dr. COUGHLIN is the receiving hospitalist. Medical Records I reviewed the patient's medical records. Lab Data I reviewed the patient's lab results. : 12/06/21 06:59 12/06/21 06:59 Labs/Radiology: Radiology Impressions Abdomen/Pelvis CT 12/06/21 06:47 IMPRESSION: 1. Large abdominal mesenteric and large extent of right pericolic gutter and low right pelvic abscess. 2. Cholelithiasis. 3. Mild right pelvicaliectasis and proximal to mid ureterectasis with suspected mild ureteral obstruction at the level of inflammatory process in the right abdomen. 4. Suspect secondary duodenitis. ADDENDUM: 12/06/21 0826 THIS REPORT CONTAINS FINDINGS THAT MAY BE CRITICAL TO PATIENT CARE. The findings were verbally communicated via telephone conference with MARS Ann by Dr. Rhoades on 12/06/2021 8:10 AM CDT. The results were acknowledged and understood. Laboratory Results WBC 10.0 10^3/uL (4.0-10.0) 12/06/21 06:59 RBC 5.21 10^6/uL (4.1-5.3) 12/06/21 06:59 Hgb 15.5 g/dL (11.7-16.6) 12/06/21 06:59 Hct 46.3 % (42.0-52.0) 12/06/21 06:59 MCV 88.9 fl (80-94) 12/06/21 06:59 MCH 29.8 pg (28.0-34.0) 12/06/21 06:59 MCHC 33.5 g/dL (30.0-36.0) 12/06/21 06:59 RDW 13.7 % (12.1-15.1) 12/06/21 06:59 Plt Count 300 10^3/cmm (130-400) 12/06/21 06:59 MPV 9.3 fL (7.4-10.4) 12/06/21 06:59 Neut % (Auto) 77.7 % 12/06/21 06:59 Lymph % (Auto) 12.6 % 12/06/21 06:59 Nicol[place] % (Auto) 7.5 % 12/06/21 06:59 Eos % (Auto) 0.6 % 12/06/21 06:59 Baso % (Auto) 0.7 % 12/06/21 06:59 Neut # (Auto) 7.76 10^3/uL (1.8-7.7) H 12/06/21 06:59 Lymph # (Auto) 1.3 10^3/uL (0.8-4.8) 12/06/21 06:59 Nicollet # (Auto) 0.8 10^3/uL (0.2-0.9) 12/06/21 06:59 Eos # (Auto) 0.1 10^3/uL (0.0-0.8) 12/06/21 06:59 Baso # (Auto) 0.1 10^3/uL (0.0-0.1) 12/06/21 06:59 Nucleated RBC % (auto) 0 % 12/06/21 06:59 Nucleated RBCs # 0.0 /100WBC 12/06/21 06:59 Sodium 130 mmol/L (136-145) L 12/06/21 06:59 Potassium 3.7 mmol/L (3.5-5.1) 12/06/21 06:59 Chloride 92 mmol/L (98-107) L 12/06/21 06:59 Carbon Dioxide 24 mmol/L (22-29) 12/06/21 06:59 Anion Gap 17.7 (5-19) 12/06/21 06:59 BUN 23 mg/dL (8-23) 12/06/21 06:59 Creatinine 1.2 mg/dL (0.7-1.2) 12/06/21 06:59 GFR Calculation Not Reportable 12/06/21 06:59 Glucose 119 mg/dL (65-115) H 12/06/21 06:59 Calculated Osmolality 275 mOsm/kg (285-295) L 12/06/21 06:59 Calcium 9.3 mg/dL (8.5-10.5) 12/06/21 06:59 Total Bilirubin 1.2 mg/dL (0.15-1.2) 12/06/21 06:59 AST 97 U/L (0-40) H 12/06/21 06:59 ALT 85 U/L (0-41) H 12/06/21 06:59 Alkaline Phosphatase 145 IU/L (40-130) H 12/06/21 06:59 Total Protein 6.9 g/dL (6.6-8.7) 12/06/21 06:59 Albumin 2.7 g/dL (3.5-5.2) L 12/06/21 06:59 Globulin 4.2 g/dL (1.3-4.6) 12/06/21 06:59 Lipase 25 U/L (13-60) 12/06/21 06:59 Critical Care Time Critical Care Time: Critical Care Time: Yes Total Critical Care Time: 40 Attestation: The high probability of a clinically significant, sudden or life threatening deterioration of the patient's cardiovascular/gastrointestinal system(s) req uired my full and direct attention, intervention and personal management. The critical care time is as shown. This time is in addition to time spent performing any reported procedures but includes the following: [x] Data and vital sign review and interpretation [x] Patient assessment, examination and intervention [x] Documentation [x] Medication orders and management Discharge Plan Discharge Patient Disposition: Xfer Short-Term Hosp Clinical Impression: Abdominal visceral abscess, Hypertension, Diastolic CHF, CAD (coronary artery disease), Atrial fibrillation with RVR, Cholelithiasis Condition: Stable Prescriptions: No Action atorvastatin 10 mg tablet 10 mg PO DAILY Qty: 90 3RF Hold Instructions: Home Medication placed on hold at Doctor's office valacyclovir 500 mg tablet 1,000 mg PO Q8H 7 Days Qty: 42 0RF amoxicillin-pot clavulanate 875-125 mg tablet 1 tab PO Q12H 10 Days Qty: 20 0RF polyethylene glycol 3350 [Miralax] 17 gram powder in packet 17 g PO BID PRN (Reason: constipation) 7 Days Qty: 14 0RF Rx Instructions: mix with 8 oz water hydrocodone-acetaminophen 5-325 mg tablet 1 tab PO Q6H PRN (Reason: pain) 7 Days Qty: 28 0RF hydrochlorothiazide 25 mg tablet 25 mg PO DAILY 90 Days Qty: 90 0RF Hold Instructions: Home Medication placed on hold at Doctor's office lisinopril 10 mg tablet 10 mg PO BID 90 Days Qty: 180 0RF Hold Instructions: Home Medication placed on hold at Doctor's office betamethasone, augmented 0.05 % cream See Rx Instructions .ROUTE .COMPLEX 0RF Rx Instructions: applic topically USE DIRECTED Aspirin Childrens 81 mg tablet,chewable 81 mg PO DAILY Qty: 30 0RF nitroglycerin 0.4 mg tablet, sublingual 0.4 mg sublingual Q5M PRN (Reason: chest pain) Qty: 30 0RF Rx Instructions: do not exceed 3 doses per episode Referrals: Emiliana El MD [Primary Care Provider] - Coding Level of Care Code ED Form Builder Helper for Chg Fwd Exam Comprehensive
[2021-12-06 07:22] LABS: Basophils # 0.1 10^3/uL (0.0-0.1); Basophils % 0.7 %; Eosinophils # 0.1 10^3/uL (0.0-0.8); Eosinophils % 0.6 %; Hematocrit 46.3 % (42.0-52.0); Hemoglobin 15.5 g/dL (11.7-16.6); Lymphocytes # 1.3 10^3/uL (0.8-4.8); Lymphocytes % 12.6 %; Mean Corpuscular HGB Conc 33.5 g/dL (30.0-36.0); Mean Corpuscular Hemoglobin 29.8 pg (28.0-34.0); Mean Corpuscular Volume 88.9 fl (80-94); Mean Platelet Volume 9.3 fL (7.4-10.4); Monocytes # 0.8 10^3/uL (0.2-0.9); Monocytes % 7.5 %; Neutrophils # 7.76 10^3/uL (1.8-7.7); Neutrophils % 77.7 %; Nucleated Red Blood Cells % 0 %; Platelet Count 300 10^3/cmm (130-400); Red Blood Count 5.21 10^6/uL (4.1-5.3); Red Cell Distribution Width 13.7 % (12.1-15.1)
[2021-12-06] MEDS: iohexol 300 mg/mL 100 mL Btl IV (07:28)
[2021-12-06 07:43] LABS: Alanine Aminotransferase 85 U/L (0-41); Albumin Level 2.7 g/dL (3.5-5.2); Alkaline Phosphatase 145 IU/L (40-130); Anion Gap 17.7 (5-19); Aspartate Amino Transferase 97 U/L (0-40); Blood Urea Nitrogen 23 mg/dL (8-23); Calcium 9.3 mg/dL (8.5-10.5); Carbon Dioxide 24 mmol/L (22-29); Chloride 92 mmol/L (98-107); Globulin 4.2 g/dL (1.3-4.6); Glucose 119 mg/dL (65-115); Lipase 25 U/L (13-60); Osmolality Calculated 275 mOsm/kg (285-295); Potassium 3.7 mmol/L (3.5-5.1); Sodium 130 mmol/L (136-145); Total Bilirubin 1.2 mg/dL (0.15-1.2); Total Protein 6.9 g/dL (6.6-8.7)
[2021-12-06] MEDS: morphine 4 mg/mL SDV 1 mL IVP ×2 (07:46→12:30)
[2021-12-06] MEDS: ondansetron 2 mg/ML SDV 2 mL 4 MG IVP (07:46)
[2021-12-06] MEDS: sodium chloride 0.9% 500 ML 999 ML IV (07:47)
--- NOTE | 2021-12-06 09:00 | ECG_ITS ---
[facility] Test Date: 2021-12-06 Pat Name: Terrence Cooper Department: Room: Gender: Male Junior Architect: : 1945 Requested By: Tod Diaz Order Number: [id number] Genaro MD: Keeley Pérez M.D. Measurements Intervals [place] Rate: 87 P: 9 SD: 201 QRS: -58 QRSD: 138 T: 58 QT: 383 QTc: 462 Interpretive Statements SINUS RHYTHM RIGHT BUNDLE BRANCH BLOCK LEFT ANTERIOR FASCICULAR BLOCK ANTEROSEPTAL MYOCARDIAL INFARCTION , OF INDETERMINATE AGE Compared to ECG 12/06/2021 07:32:49 Left anterior fascicular block now present Atrial flutter no longer present Left-axis deviation no longer present Myocardial infarct finding still present Electronically Signed On 12-07-2021 11:15:16 CDT by Keeley Pérez M.D. [email or web address]
[2021-12-06] MEDS: piperacillin-tazobactam 4.5 GM in sodium chloride 0.9% (plus) 50 ML IV (09:04)
[2021-12-06 09:05] LABS: Lactic Sepsis W/Reflex 1.4 mmol/L (0.5-2.2)
--- NOTE | 2021-12-06 09:44 | PC.PHAR ---
pts verified pts medications-pts states the pt took himself off all his meds like aspirin,atorvastatin,hctz,lisinopril states pt hasnt taken in 9 months
[2021-12-06 10:30] LABS: Bilirubin Urine Neg (Negative); Blood Urine Neg (Negative); Glucose Urine UA Norm (Normal); Ketones Urine 1+ (Negative); Leukocyte Esterase Urine Negative (Negative); Nitrate Urine Negative (Negative); Protein Urine Trace (Negative); Specific Gravity, Urine 1.005 (1.005-1.030); Urine Appearance Clear (CLEAR); Urine Color Amber (Yellow); Urobilinogen Urine Norm (Negative); pH Urine 5 (5-7)
[2021-12-06 10:31] LABS: Add Urine Culture? No; Add Urine Microscopic? YES; Bacteria Urine TRACE /hpf; Mucus Urine TRACE /hpf; Squamous Epithelial Cell Urine 0-4 /hpf (0-5); WBC Urine RARE /hpf (0-5)
--- NOTE | 2021-12-06 12:53 | PC.NURSE ---
0700- Assumed care. Patient stable but coninues to complain of pain. at bedside. Orders noted for meds and fluids. 0730- CT here, patient to CT via cart 0745- Returned from CT, Placed back on monitor and noted to be in SVT with a rate of 160, Physician notified and orders received for fluid bolus and Cardizem bolus followed by drip 0800- Converted to SR with rate of 87. Patient relates he is feeling better, repeat EKG done and Physician notified. Cardizem drip at 5ml/h per protocol. 0900- Abdominal abscess, per CT. Arrangements in progress for transfer. remains at bedside 1000- [facility] has accepted patient with pending discharges. Awaiting bed availability for commencement of tranfer. Patient and family updated 1100- left to home. Will update her via phone when bed assignment obtained. VS remain stable as recorded 1200- Patient relates pain is returning, physician notified and awaiting orders for pain management. 1300- Patient resting on ED cart. Meds given and he is feeling some better. Continue to await bed availability at [facility] in [place]
== END 2021-12-06 17:40 | disposition short-term general hospital (02) ==
PROVIDERS: Emergency Provider Family Medicine; PCP Family Medicine
DX: K65.1 Peritoneal abscess (principal); I48.91 Unspecified atrial fibrillation; I11.0 Hypertensive heart disease with heart failure; I50.30 Unspecified diastolic (congestive) heart failure; I25.10 Atherosclerotic heart disease of native coronary artery without angina pectoris; K80.20 Calculus of gallbladder without cholecystitis without obstruction; Z87.891 Personal history of nicotine dependence; R10.11 Right upper quadrant pain
CPT/HCPCS: 74177; 76705; 80053; 81001; 83605; 83690; 85025; 87040; 93005; 96365; 96375; 96376; 99285; J2270; J2405; J2543; J3490; J7040; Q9967

== ENCOUNTER → 2021-12-19 13:01 | Outpatient (BNVA) | payer MEDICARE, MEDICAID, SELFPAY | PROVIDERS: PCP Family Medicine; Visit Provider Family Medicine | DX: I51.9 Heart disease, unspecified (principal); K81.9 Cholecystitis, unspecified; Z09 Encounter for follow-up examination after completed treatment for conditions other than malignant neoplasm; R10.11 Right upper quadrant pain | CPT/HCPCS: 80053; 85025 ==

== ENCOUNTER → 2021-12-26 15:51 | Outpatient (BNVA) | payer MEDICARE, MEDICAID, SELFPAY | PROVIDERS: PCP Family Medicine; Visit Provider Family Medicine | DX: K81.9 Cholecystitis, unspecified (principal); I51.9 Heart disease, unspecified | CPT/HCPCS: 80053; 85025 ==

== ENCOUNTER 2022-06-08 06:00 | Outpatient (RCR) | payer MEDICARE, MEDICAID, SELFPAY | END 2022-07-08 23:59 | disposition home or self-care (01) | LOC: MOT 06:00 | PROVIDERS: PCP Family Medicine; Visit Provider Student in an Organized Health Care Education/Training Program | DX: G72.81 Critical illness myopathy (principal) | CPT/HCPCS: 97110; 97166 ==

== ENCOUNTER → 2022-06-17 10:33 | Outpatient (BNVA) | payer MEDICARE, MEDICAID, SELFPAY | PROVIDERS: PCP Family Medicine; Visit Provider Family Medicine | DX: R30.0 Dysuria (principal); I11.0 Hypertensive heart disease with heart failure; I50.30 Unspecified diastolic (congestive) heart failure; K81.9 Cholecystitis, unspecified | CPT/HCPCS: 80053; 81000; 85025; 87086 ==

== ENCOUNTER → 2022-06-25 10:35 | Outpatient (BNVA) | payer MEDICARE, MEDICAID, SELFPAY | PROVIDERS: PCP Family Medicine; Visit Provider Family Medicine | DX: G89.29 Other chronic pain (principal); J44.9 Chronic obstructive pulmonary disease, unspecified; K81.9 Cholecystitis, unspecified; I50.32 Chronic diastolic (congestive) heart failure | CPT/HCPCS: 80053; 85025 ==

== ENCOUNTER 2022-06-26 06:00 | Outpatient (RCR) | payer MEDICARE, MEDICAID, SELFPAY | END 2022-07-08 23:59 | disposition home or self-care (01) | LOC: MPT 06:00 | PROVIDERS: PCP Family Medicine; Visit Provider Student in an Organized Health Care Education/Training Program | DX: M62.81 Muscle weakness (generalized) (principal); R26.81 Unsteadiness on feet | CPT/HCPCS: 97110; 97162 ==

== ENCOUNTER → 2022-06-27 13:29 | Outpatient (BNVA) | payer MEDICARE, MEDICAID, SELFPAY | PROVIDERS: PCP Family Medicine; Visit Provider Internal Medicine Cardiovascular Disease | DX: I25.10 Atherosclerotic heart disease of native coronary artery without angina pectoris (principal); I11.0 Hypertensive heart disease with heart failure; I50.32 Chronic diastolic (congestive) heart failure; Z87.891 Personal history of nicotine dependence | CPT/HCPCS: 99214 ==

== ENCOUNTER → 2022-07-03 14:49 | Outpatient (BNVA) | payer MEDICARE, MEDICAID, SELFPAY | PROVIDERS: PCP Family Medicine; Visit Provider Family Medicine | DX: I50.30 Unspecified diastolic (congestive) heart failure (principal) | CPT/HCPCS: 80053; 83735 ==

== ENCOUNTER → 2022-07-08 12:02 | Outpatient (BNVA) | payer MEDICARE, MEDICAID, SELFPAY | PROVIDERS: PCP Family Medicine; Visit Provider Internal Medicine Infectious Disease | DX: I50.30 Unspecified diastolic (congestive) heart failure (principal) | CPT/HCPCS: 80053; 85025 ==

== ENCOUNTER 2022-07-09 06:00 | Outpatient (RCR) | payer MEDICARE, MEDICAID, SELFPAY | END 2022-08-07 23:59 | disposition home or self-care (01) | LOC: MPT 06:00 | PROVIDERS: PCP Family Medicine; Visit Provider Student in an Organized Health Care Education/Training Program | DX: M62.81 Muscle weakness (generalized) (principal); R26.81 Unsteadiness on feet | CPT/HCPCS: 97110 ==

== ENCOUNTER 2022-07-09 06:00 | Outpatient (RCR) | payer MEDICARE, MEDICAID, SELFPAY | END 2022-08-07 23:59 | disposition home or self-care (01) | LOC: MOT 06:00 | PROVIDERS: PCP Family Medicine; Visit Provider Student in an Organized Health Care Education/Training Program | DX: G72.81 Critical illness myopathy (principal) | CPT/HCPCS: 97110 ==

== ENCOUNTER → 2022-07-17 14:22 | Outpatient (BNVA) | payer MEDICARE, MEDICAID, SELFPAY | PROVIDERS: PCP Family Medicine; Visit Provider Internal Medicine Infectious Disease | DX: I50.30 Unspecified diastolic (congestive) heart failure (principal); Z96.0 Presence of urogenital implants; R82.90 Unspecified abnormal findings in urine | CPT/HCPCS: 80053; 81000; 85025; 87086 ==

== ENCOUNTER → 2022-07-30 13:32 | Outpatient (BNVA) | payer MEDICARE, MEDICAID, SELFPAY | PROVIDERS: PCP Family Medicine; Visit Provider Nurse Practitioner Family | DX: R39.9 Unspecified symptoms and signs involving the genitourinary system (principal); Z96.0 Presence of urogenital implants | CPT/HCPCS: 80053; 81000; 87086 ==

== ENCOUNTER → 2022-08-05 15:01 | Outpatient (BNVA) | payer MEDICARE, MEDICAID, SELFPAY | PROVIDERS: PCP Family Medicine; Visit Provider Family Medicine | DX: J44.9 Chronic obstructive pulmonary disease, unspecified (principal); K81.9 Cholecystitis, unspecified | CPT/HCPCS: 80053; 85025 ==

== ENCOUNTER 2022-08-08 06:00 | Outpatient (RCR) | payer MEDICARE, MEDICAID, SELFPAY | END 2022-09-07 23:59 | disposition home or self-care (01) | LOC: MOT 06:00 | PROVIDERS: PCP Family Medicine; Visit Provider Student in an Organized Health Care Education/Training Program | DX: G72.81 Critical illness myopathy (principal) | CPT/HCPCS: 97110; 97112 ==

== ENCOUNTER 2022-08-08 06:00 | Outpatient (RCR) | payer MEDICARE, MEDICAID, SELFPAY | END 2022-09-07 23:59 | disposition home or self-care (01) | LOC: MPT 06:00 | PROVIDERS: PCP Family Medicine; Visit Provider Student in an Organized Health Care Education/Training Program | DX: M62.81 Muscle weakness (generalized) (principal); R26.81 Unsteadiness on feet | CPT/HCPCS: 97110; 97112 ==

== ENCOUNTER → 2022-08-12 12:43 | Outpatient (BNVA) | payer MEDICARE, MEDICAID, SELFPAY | PROVIDERS: PCP Family Medicine; Visit Provider Nurse Practitioner Family | DX: R31.9 Hematuria, unspecified (principal); K81.9 Cholecystitis, unspecified | CPT/HCPCS: 81000; 85018; 87086 ==

== ENCOUNTER → 2022-08-20 10:29 | Outpatient (BNVA) | payer MEDICARE, MEDICAID, SELFPAY | PROVIDERS: PCP Family Medicine; Visit Provider Family Medicine | DX: R31.9 Hematuria, unspecified (principal) | CPT/HCPCS: 81000 ==

== ENCOUNTER → 2022-09-04 11:58 | Outpatient (BNVA) | payer MEDICARE, MEDICAID, SELFPAY | PROVIDERS: PCP Family Medicine; Visit Provider Family Medicine | DX: R31.9 Hematuria, unspecified (principal) | CPT/HCPCS: 80053; 81000; 85025 ==

== ENCOUNTER 2022-09-08 06:00 | Outpatient (RCR) | payer MEDICARE, MEDICAID, SELFPAY | END 2022-10-08 23:59 | disposition home or self-care (01) | LOC: MOT 06:00 | PROVIDERS: PCP Family Medicine; Visit Provider Student in an Organized Health Care Education/Training Program | DX: G72.81 Critical illness myopathy (principal) | CPT/HCPCS: 97110 ==

== ENCOUNTER 2022-09-08 06:00 | Outpatient (RCR) | payer MEDICARE, MEDICAID, SELFPAY | END 2022-10-08 23:59 | disposition home or self-care (01) | LOC: MPT 06:00 | PROVIDERS: PCP Family Medicine; Visit Provider Student in an Organized Health Care Education/Training Program | DX: M62.81 Muscle weakness (generalized) (principal); R26.81 Unsteadiness on feet | CPT/HCPCS: 97110; 97112; 97116; 97530 ==

== ENCOUNTER → 2022-09-25 12:07 | Outpatient (BNVA) | payer MEDICARE, MEDICAID, SELFPAY | PROVIDERS: PCP Family Medicine; Visit Provider Family Medicine | DX: Z96.0 Presence of urogenital implants (principal); I10 Essential (primary) hypertension; R31.9 Hematuria, unspecified | CPT/HCPCS: 80048; 81000; 83735; 85025; 87086 ==

== ENCOUNTER 2022-10-09 06:00 | Outpatient (RCR) | payer MEDICARE, MEDICAID, SELFPAY | END 2022-11-05 23:59 | disposition home or self-care (01) | LOC: MOT 06:00 | PROVIDERS: PCP Family Medicine; Visit Provider Student in an Organized Health Care Education/Training Program | DX: M62.81 Muscle weakness (generalized) (principal); G72.89 Other specified myopathies | CPT/HCPCS: 97110; 97112; 97140 ==

== ENCOUNTER 2022-10-09 06:00 | Outpatient (RCR) | payer MEDICARE, MEDICAID, SELFPAY | END 2022-11-05 23:59 | disposition home or self-care (01) | LOC: MPT 06:00 | PROVIDERS: PCP Family Medicine; Visit Provider Student in an Organized Health Care Education/Training Program | DX: M62.81 Muscle weakness (generalized) (principal); R26.81 Unsteadiness on feet | CPT/HCPCS: 97110; 97112; 97116 ==

== ENCOUNTER 2022-11-06 06:00 | Outpatient (RCR) | payer MEDICARE, MEDICAID, SELFPAY | END 2022-12-06 23:59 | disposition home or self-care (01) | LOC: MOT 06:00 | PROVIDERS: PCP Family Medicine; Visit Provider Student in an Organized Health Care Education/Training Program | DX: G72.89 Other specified myopathies (principal) | CPT/HCPCS: 97110; 97140 ==

== ENCOUNTER 2022-11-06 06:00 | Outpatient (RCR) | payer MEDICARE, MEDICAID, SELFPAY | END 2022-12-06 23:59 | disposition home or self-care (01) | LOC: MPT 06:00 | PROVIDERS: PCP Family Medicine; Visit Provider Student in an Organized Health Care Education/Training Program | DX: M62.81 Muscle weakness (generalized) (principal); R26.81 Unsteadiness on feet | CPT/HCPCS: 97110; 97112; 97116; 97530 ==

== ENCOUNTER → 2022-11-27 13:08 | Outpatient (BNVA) | payer MEDICARE, MEDICAID, SELFPAY | PROVIDERS: PCP Family Medicine; Visit Provider Family Medicine | DX: I10 Essential (primary) hypertension (principal); K81.9 Cholecystitis, unspecified | CPT/HCPCS: 80053; 85025 ==

== ENCOUNTER 2022-12-07 06:00 | Outpatient (RCR) | payer MEDICARE, MEDICAID, SELFPAY | END 2023-01-05 23:59 | disposition home or self-care (01) | LOC: MOT 06:00 | PROVIDERS: PCP Family Medicine; Visit Provider Student in an Organized Health Care Education/Training Program | DX: G72.81 Critical illness myopathy (principal) | CPT/HCPCS: 97110; 97530 ==

== ENCOUNTER 2022-12-07 06:00 | Outpatient (RCR) | payer MEDICARE, MEDICAID, SELFPAY | END 2023-01-05 23:59 | disposition home or self-care (01) | LOC: MPT 06:00 | PROVIDERS: PCP Family Medicine; Visit Provider Student in an Organized Health Care Education/Training Program | DX: M62.81 Muscle weakness (generalized) (principal); R26.81 Unsteadiness on feet | CPT/HCPCS: 97110; 97112; 97116 ==

== ENCOUNTER → 2022-12-28 11:17 | Outpatient (BNVA) | payer MEDICARE, MEDICAID, SELFPAY | PROVIDERS: PCP Family Medicine; Visit Provider Nurse Practitioner Family | DX: U07.1 COVID-19 (principal) | CPT/HCPCS: 87426 ==

== ENCOUNTER 2023-01-06 06:00 | Outpatient (RCR) | payer MEDICARE, MEDICAID, SELFPAY | END 2023-02-05 23:59 | disposition home or self-care (01) | LOC: MOT 06:00 | PROVIDERS: PCP Family Medicine; Visit Provider Student in an Organized Health Care Education/Training Program | DX: M62.81 Muscle weakness (generalized) (principal) | CPT/HCPCS: 97110; 97112; 97535 ==

== ENCOUNTER 2023-01-06 06:00 | Outpatient (RCR) | payer MEDICARE, MEDICAID, SELFPAY | END 2023-02-05 23:59 | disposition home or self-care (01) | LOC: MPT 06:00 | PROVIDERS: PCP Family Medicine; Visit Provider Student in an Organized Health Care Education/Training Program | DX: M62.81 Muscle weakness (generalized) (principal); R26.81 Unsteadiness on feet | CPT/HCPCS: 97110; 97112; 97116; 97530 ==

== ENCOUNTER → 2023-01-07 13:48 | Outpatient (BNVA) | payer MEDICARE, MEDICAID, SELFPAY | PROVIDERS: PCP Family Medicine; Visit Provider Nurse Practitioner Family | DX: I25.10 Atherosclerotic heart disease of native coronary artery without angina pectoris (principal); I11.0 Hypertensive heart disease with heart failure; I50.30 Unspecified diastolic (congestive) heart failure; Z87.891 Personal history of nicotine dependence | CPT/HCPCS: 99214 ==

== ENCOUNTER 2023-02-06 06:00 | Outpatient (RCR) | payer MEDICARE, MEDICAID, SELFPAY | END 2023-03-07 23:59 | disposition home or self-care (01) | LOC: MOT 06:00 | PROVIDERS: PCP Family Medicine; Visit Provider Student in an Organized Health Care Education/Training Program | DX: G72.81 Critical illness myopathy (principal) | CPT/HCPCS: 97110; 97140; 97530 ==

== ENCOUNTER 2023-02-06 06:00 | Outpatient (RCR) | payer MEDICARE, MEDICAID, SELFPAY | END 2023-03-07 23:59 | disposition home or self-care (01) | LOC: MPT 06:00 | PROVIDERS: PCP Family Medicine; Visit Provider Student in an Organized Health Care Education/Training Program | DX: M62.81 Muscle weakness (generalized) (principal); R26.81 Unsteadiness on feet | CPT/HCPCS: 97110; 97112; 97116 ==

== ENCOUNTER → 2023-02-09 16:04 | Outpatient (BNVA) | payer MEDICARE, MEDICAID, SELFPAY | PROVIDERS: PCP Family Medicine; Visit Provider Nurse Practitioner Family | DX: I25.10 Atherosclerotic heart disease of native coronary artery without angina pectoris (principal); K81.9 Cholecystitis, unspecified; R31.9 Hematuria, unspecified; Z96.0 Presence of urogenital implants | CPT/HCPCS: 81000; 87086 ==

== ENCOUNTER 2023-03-08 06:00 | Outpatient (RCR) | payer MEDICARE, MEDICAID, SELFPAY | END 2023-04-07 23:59 | disposition home or self-care (01) | LOC: MPT 06:00 | PROVIDERS: PCP Family Medicine; Visit Provider Student in an Organized Health Care Education/Training Program | DX: M62.81 Muscle weakness (generalized) (principal); R26.81 Unsteadiness on feet | CPT/HCPCS: 97110; 97112; 97116; 97530 ==

== ENCOUNTER 2023-04-08 06:00 | Outpatient (RCR) | payer MEDICARE, MEDICAID, SELFPAY | END 2023-05-08 23:59 | disposition home or self-care (01) | LOC: MPT 06:00 | PROVIDERS: PCP Family Medicine; Visit Provider Student in an Organized Health Care Education/Training Program | DX: M62.81 Muscle weakness (generalized) (principal); R26.81 Unsteadiness on feet | CPT/HCPCS: 97110; 97112; 97116; 97530 ==

== ENCOUNTER → 2023-04-16 12:31 | Outpatient (BNVA) | payer MEDICARE, MEDICAID, SELFPAY | PROVIDERS: PCP Family Medicine; Visit Provider Family Medicine | DX: E87.6 Hypokalemia (principal); I50.30 Unspecified diastolic (congestive) heart failure | CPT/HCPCS: 80048 ==

== ENCOUNTER 2023-05-09 06:00 | Outpatient (RCR) | payer MEDICARE, MEDICAID, SELFPAY | END 2023-06-07 23:59 | disposition home or self-care (01) | LOC: MPT 06:00 | PROVIDERS: PCP Family Medicine; Visit Provider Student in an Organized Health Care Education/Training Program | DX: M62.81 Muscle weakness (generalized) (principal); R26.81 Unsteadiness on feet | CPT/HCPCS: 97110; 97112; 97116 ==

== ENCOUNTER 2023-05-23 12:44 | Outpatient (CLI) | payer MEDICARE, MEDICAID, SELFPAY ==
[2023-05-23 13:15] LABS: Basophils # 0.1 10^3/uL (0.0-0.1); Eosinophils # 0.1 10^3/uL (0.0-0.8); Eosinophils % 2.2 %; Hematocrit 48.5 % (37-53); Lymphocytes # 1.9 10^3/uL (0.8-4.8); Lymphocytes % 32.2 %; Mean Corpuscular HGB Conc 32.4 g/dL (30-55); Mean Corpuscular Hemoglobin 29.5 pg (27-33); Mean Platelet Volume 8.4 fL (7.4-10.4); Monocytes # 0.5 10^3/uL (0.2-0.9); Monocytes % 8.8 %; Neutrophils # 3.22 10^3/uL (1.8-7.7); Neutrophils % 55.6 %; Nucleated Red Blood Cells % 0 %; Platelet Count 173 10^3/cmm (157-399); Red Blood Count 5.33 10^6/uL (3.85-5.65)
[2023-05-23 13:35] LABS: Alanine Aminotransferase 10 U/L (0-41); Albumin Level 3.8 g/dL (3.5-5.2); Alkaline Phosphatase 89 U/L (40-130); Aspartate Amino Transferase 17 U/L (0-40); Blood Urea Nitrogen 21 mg/dL (8-23); Calcium 9.2 mg/dL (8.5-10.5); Carbon Dioxide 22 mmol/L (22-29); Chloride 107 mmol/L (98-107); Glucose 114 mg/dL (65-115); Osmolality Calculated 290 mOsm/kg (285-295); Sodium 138 mmol/L (136-145); Total Bilirubin 0.5 mg/dL (0.15-1.2); Total Protein 6.8 g/dL (6.6-8.7)
== END 2023-05-23 12:45 | disposition home or self-care (01) ==
PROVIDERS: PCP Family Medicine
DX: K65.1 Peritoneal abscess (principal); Z79.899 Other long term (current) drug therapy
CPT/HCPCS: 36415; 80053; 85025

== ENCOUNTER 2023-06-08 06:00 | Outpatient (RCR) | payer MEDICARE, MEDICAID, SELFPAY | END 2023-06-11 23:59 | disposition home or self-care (01) | LOC: MPT 06:00 | PROVIDERS: PCP Family Medicine; Visit Provider Student in an Organized Health Care Education/Training Program | DX: M62.81 Muscle weakness (generalized) (principal); R26.81 Unsteadiness on feet | CPT/HCPCS: 97110; 97112 ==

== ENCOUNTER → 2023-06-18 08:39 | Outpatient (BNVA) | payer MEDICARE, MEDICAID, SELFPAY | PROVIDERS: PCP Family Medicine; Visit Provider Thoracic Surgery (Cardiothoracic Vascular Surgery) | DX: I96 Gangrene, not elsewhere classified (principal); L02.211 Cutaneous abscess of abdominal wall | CPT/HCPCS: 11042; 99213 ==

== ENCOUNTER → 2023-06-25 08:34 | Outpatient (BNVA) | payer MEDICARE, MEDICAID, SELFPAY | PROVIDERS: PCP Family Medicine; Visit Provider Thoracic Surgery (Cardiothoracic Vascular Surgery) | DX: L02.211 Cutaneous abscess of abdominal wall (principal) | CPT/HCPCS: 97597 ==

== ENCOUNTER → 2023-07-09 10:44 | Outpatient (BNVA) | payer MEDICARE, MEDICAID, SELFPAY | PROVIDERS: PCP Family Medicine; Visit Provider Thoracic Surgery (Cardiothoracic Vascular Surgery) | DX: I96 Gangrene, not elsewhere classified (principal); L98.492 Non-pressure chronic ulcer of skin of other sites with fat layer exposed | CPT/HCPCS: 11042; 99214; A6219 ==

== ENCOUNTER → 2023-07-15 10:28 | Outpatient (BNVA) | payer MEDICARE, MEDICAID, SELFPAY | PROVIDERS: PCP Family Medicine; Visit Provider Nurse Practitioner Family | DX: I96 Gangrene, not elsewhere classified (principal); L98.492 Non-pressure chronic ulcer of skin of other sites with fat layer exposed | CPT/HCPCS: 11042 ==

== ENCOUNTER → 2023-07-22 12:53 | Outpatient (BNVA) | payer MEDICARE, MEDICAID, SELFPAY | PROVIDERS: PCP Family Medicine; Visit Provider Nurse Practitioner Family | DX: T81.31XD Disruption of external operation (surgical) wound, not elsewhere classified, subsequent encounter (principal); Y83.8 Other surgical procedures as the cause of abnormal reaction of the patient, or of later complication, without mention of misadventure at the time of the procedure | CPT/HCPCS: 11042; 87070; 87176; 87205; A6212 ==

== ENCOUNTER → 2023-07-30 13:05 | Outpatient (BNVA) | payer MEDICARE, MEDICAID, SELFPAY | PROVIDERS: Visit Provider Thoracic Surgery (Cardiothoracic Vascular Surgery) | DX: I96 Gangrene, not elsewhere classified (principal); L98.492 Non-pressure chronic ulcer of skin of other sites with fat layer exposed; T81.31XD Disruption of external operation (surgical) wound, not elsewhere classified, subsequent encounter; Y83.8 Other surgical procedures as the cause of abnormal reaction of the patient, or of later complication, without mention of misadventure at the time of the procedure | CPT/HCPCS: 11042 ==

== ENCOUNTER 2023-08-05 06:00 | Outpatient (RCR) | payer MEDICARE, MEDICAID, SELFPAY | END 2023-08-07 23:59 | disposition home or self-care (01) | LOC: MPT 06:00 | PROVIDERS: Visit Provider Family Medicine | DX: M62.81 Muscle weakness (generalized) (principal); R26.81 Unsteadiness on feet | CPT/HCPCS: 97110; 97162 ==

== ENCOUNTER → 2023-08-06 14:13 | Outpatient (BNVA) | payer MEDICARE, MEDICAID, SELFPAY | PROVIDERS: Visit Provider Nurse Practitioner Family | DX: T81.31XD Disruption of external operation (surgical) wound, not elsewhere classified, subsequent encounter (principal); Y83.8 Other surgical procedures as the cause of abnormal reaction of the patient, or of later complication, without mention of misadventure at the time of the procedure | CPT/HCPCS: 11042; A6219 ==

== ENCOUNTER 2023-08-08 06:00 | Outpatient (RCR) | payer MEDICARE, MEDICAID, SELFPAY | END 2023-09-07 23:59 | disposition home or self-care (01) | LOC: MPT 06:00 | PROVIDERS: Visit Provider Family Medicine | DX: M62.81 Muscle weakness (generalized) (principal); R26.81 Unsteadiness on feet | CPT/HCPCS: 97110; 97112; 97116 ==

== ENCOUNTER 2023-08-13 13:55 | Outpatient (CLI) | payer MEDICARE, MEDICAID, SELFPAY ==
[2023-08-13 14:28] LABS: Basophils # 0.1 10^3/uL (0.0-0.1); Basophils % 1.5 %; Eosinophils # 0.5 10^3/uL (0.0-0.8); Eosinophils % 8.4 %; Hematocrit 49.4 % (37-53); Lymphocytes % 33.3 %; Mean Corpuscular HGB Conc 33.2 g/dL (30-55); Mean Corpuscular Hemoglobin 30.4 pg (27-33); Mean Corpuscular Volume 91.7 fl (82-101); Mean Platelet Volume 8.7 fL (7.4-10.4); Monocytes # 0.5 10^3/uL (0.2-0.9); Monocytes % 8.5 %; Neutrophils # 2.92 10^3/uL (1.8-7.7); Nucleated Red Blood Cells % 0 %; Platelet Count 168 10^3/cmm (157-399); Red Blood Count 5.39 10^6/uL (3.85-5.65); Red Cell Distribution Width 14.3 % (12.1-15.1); White Blood Count 6.09 10^3/uL (3.29-11.43)
[2023-08-13 14:44] LABS: Alanine Aminotransferase 12 U/L (0-41); Albumin Level 3.8 g/dL (3.5-5.2); Alkaline Phosphatase 96 U/L (40-130); Anion Gap 14.4 (5-19); Aspartate Amino Transferase 16 U/L (0-40); Blood Urea Nitrogen 14 mg/dL (8-23); Calcium 9.3 mg/dL (8.5-10.5); Carbon Dioxide 22 mmol/L (22-29); Chloride 106 mmol/L (98-107); Glucose 88 mg/dL (65-115); Osmolality Calculated 286 mOsm/kg (285-295); Potassium 4.4 mmol/L (3.5-5.1); Sodium 138 mmol/L (136-145); Total Bilirubin 0.4 mg/dL (0.15-1.2); Total Protein 6.8 g/dL (6.6-8.7)
== END 2023-08-13 13:56 | disposition home or self-care (01) ==
LOC: LAB 14:01
PROVIDERS: Visit Provider Internal Medicine Infectious Disease
DX: L98.492 Non-pressure chronic ulcer of skin of other sites with fat layer exposed (principal); Z09 Encounter for follow-up examination after completed treatment for conditions other than malignant neoplasm
CPT/HCPCS: 36415; 80053; 85025; 97597

== ENCOUNTER → 2023-08-20 15:00 | Outpatient (BNVA) | payer MEDICARE, MEDICAID, SELFPAY | PROVIDERS: Visit Provider Thoracic Surgery (Cardiothoracic Vascular Surgery) | DX: I96 Gangrene, not elsewhere classified (principal); L98.492 Non-pressure chronic ulcer of skin of other sites with fat layer exposed | CPT/HCPCS: 99212 ==

== ENCOUNTER → 2023-08-27 13:03 | Outpatient (BNVA) | payer MEDICARE, MEDICAID, SELFPAY | PROVIDERS: Visit Provider Thoracic Surgery (Cardiothoracic Vascular Surgery) | DX: Z09 Encounter for follow-up examination after completed treatment for conditions other than malignant neoplasm (principal); Z87.2 Personal history of diseases of the skin and subcutaneous tissue | CPT/HCPCS: 99212 ==

== ENCOUNTER 2023-09-03 06:00 | Outpatient (RCR) | payer MEDICARE, MEDICAID, SELFPAY | END 2023-09-07 23:59 | disposition home or self-care (01) | LOC: MOT 06:00 | PROVIDERS: Visit Provider Family Medicine | DX: Z74.09 Other reduced mobility (principal); I50.30 Unspecified diastolic (congestive) heart failure; I25.10 Atherosclerotic heart disease of native coronary artery without angina pectoris; Z87.891 Personal history of nicotine dependence | CPT/HCPCS: 97110; 97166 ==

== ENCOUNTER 2023-09-08 06:00 | Outpatient (RCR) | payer MEDICARE, MEDICAID, SELFPAY | END 2023-10-08 23:59 | disposition home or self-care (01) | LOC: MPT 06:00 | PROVIDERS: Visit Provider Family Medicine | DX: M62.81 Muscle weakness (generalized) (principal); R26.81 Unsteadiness on feet | CPT/HCPCS: 97110; 97112; 97116 ==

== ENCOUNTER 2023-09-08 06:00 | Outpatient (RCR) | payer MEDICARE, MEDICAID, SELFPAY | END 2023-10-08 23:59 | disposition home or self-care (01) | LOC: MOT 06:00 | PROVIDERS: Visit Provider Family Medicine | DX: I50.32 Chronic diastolic (congestive) heart failure (principal); I25.10 Atherosclerotic heart disease of native coronary artery without angina pectoris; Z87.891 Personal history of nicotine dependence; Z74.09 Other reduced mobility | CPT/HCPCS: 97110; 97140 ==

== ENCOUNTER 2023-10-09 06:00 | Outpatient (RCR) | payer MEDICARE, MEDICAID, SELFPAY | END 2023-11-06 23:59 | disposition home or self-care (01) | LOC: MPT 06:00 | PROVIDERS: PCP Family Medicine; Visit Provider Family Medicine | DX: M62.81 Muscle weakness (generalized) (principal); R26.81 Unsteadiness on feet | CPT/HCPCS: 97110; 97112; 97116 ==

== ENCOUNTER → 2023-10-14 13:09 | Outpatient (BNVA) | payer MEDICARE, MEDICAID, SELFPAY | PROVIDERS: PCP Family Medicine; Visit Provider Thoracic Surgery (Cardiothoracic Vascular Surgery) | DX: L98.491 Non-pressure chronic ulcer of skin of other sites limited to breakdown of skin (principal) | CPT/HCPCS: 97597; 99213; A6212 ==

== ENCOUNTER → 2023-10-22 13:03 | Outpatient (BNVA) | payer MEDICARE, MEDICAID, SELFPAY | PROVIDERS: PCP Family Medicine; Visit Provider Thoracic Surgery (Cardiothoracic Vascular Surgery) | DX: L98.492 Non-pressure chronic ulcer of skin of other sites with fat layer exposed (principal) | CPT/HCPCS: 97597 ==

== ENCOUNTER → 2023-11-05 13:02 | Outpatient (BNVA) | payer MEDICARE, MEDICAID, SELFPAY | PROVIDERS: PCP Family Medicine; Visit Provider Thoracic Surgery (Cardiothoracic Vascular Surgery) | DX: T81.31XD Disruption of external operation (surgical) wound, not elsewhere classified, subsequent encounter (principal); Y83.8 Other surgical procedures as the cause of abnormal reaction of the patient, or of later complication, without mention of misadventure at the time of the procedure | CPT/HCPCS: 99212 ==

== ENCOUNTER 2023-11-07 06:00 | Outpatient (RCR) | payer MEDICARE, MEDICAID, SELFPAY | END 2023-12-07 23:59 | disposition home or self-care (01) | LOC: MPT 06:00 | PROVIDERS: PCP Family Medicine; Visit Provider Family Medicine | DX: M62.81 Muscle weakness (generalized) (principal); R26.81 Unsteadiness on feet | CPT/HCPCS: 97110; 97112; 97116 ==

== ENCOUNTER 2023-12-08 06:00 | Outpatient (RCR) | payer MEDICARE, MEDICAID, SELFPAY | END 2024-01-06 23:59 | disposition home or self-care (01) | LOC: MPT 06:00 | PROVIDERS: PCP Family Medicine; Visit Provider Family Medicine | DX: M62.81 Muscle weakness (generalized) (principal); R26.81 Unsteadiness on feet | CPT/HCPCS: 97110; 97112; 97116 ==

== ENCOUNTER 2024-01-07 06:00 | Outpatient (RCR) | payer MEDICARE, MEDICAID, SELFPAY | END 2024-02-06 23:59 | disposition home or self-care (01) | LOC: MPT 06:00 | PROVIDERS: PCP Family Medicine; Visit Provider Family Medicine | DX: M62.81 Muscle weakness (generalized) (principal); R26.81 Unsteadiness on feet | CPT/HCPCS: 97110; 97112; 97116; 97530 ==

== ENCOUNTER → 2024-01-28 09:15 | Outpatient (BNVA) | payer MEDICARE, MEDICAID, SELFPAY | PROVIDERS: PCP Family Medicine; Visit Provider Thoracic Surgery (Cardiothoracic Vascular Surgery) | DX: T81.31XD Disruption of external operation (surgical) wound, not elsewhere classified, subsequent encounter (principal); Y83.8 Other surgical procedures as the cause of abnormal reaction of the patient, or of later complication, without mention of misadventure at the time of the procedure | CPT/HCPCS: 99213 ==

== ENCOUNTER 2024-02-07 06:00 | Outpatient (RCR) | payer MEDICARE, MEDICAID, SELFPAY | END 2024-03-07 23:59 | disposition home or self-care (01) | LOC: MPT 06:00 | PROVIDERS: PCP Family Medicine; Visit Provider Family Medicine | DX: M62.81 Muscle weakness (generalized) (principal); R26.81 Unsteadiness on feet | CPT/HCPCS: 97110; 97112 ==

== ENCOUNTER 2024-03-08 06:00 | Outpatient (RCR) | payer MEDICARE, MEDICAID, SELFPAY | END 2024-04-07 23:59 | disposition home or self-care (01) | LOC: MPT 06:00 | PROVIDERS: PCP Family Medicine; Visit Provider Family Medicine | DX: M62.81 Muscle weakness (generalized) (principal); R26.81 Unsteadiness on feet | CPT/HCPCS: 97110; 97112; 97530 ==

== ENCOUNTER 2024-04-08 06:00 | Outpatient (RCR) | payer MEDICARE, MEDICAID, SELFPAY | END 2024-05-08 23:59 | disposition home or self-care (01) | LOC: MPT 06:00 | PROVIDERS: PCP Family Medicine; Visit Provider Family Medicine | DX: M62.81 Muscle weakness (generalized) (principal); R26.81 Unsteadiness on feet | CPT/HCPCS: 97110 ==

== ENCOUNTER → 2024-04-21 14:02 | Outpatient (BNVA) | payer MEDICARE, MEDICAID, SELFPAY | PROVIDERS: PCP Family Medicine; Visit Provider Thoracic Surgery (Cardiothoracic Vascular Surgery) | DX: T81.31XD Disruption of external operation (surgical) wound, not elsewhere classified, subsequent encounter (principal); Y83.8 Other surgical procedures as the cause of abnormal reaction of the patient, or of later complication, without mention of misadventure at the time of the procedure | CPT/HCPCS: 11042; 99213; A6446 ==

== ENCOUNTER → 2024-04-27 15:16 | Outpatient (BNVA) | payer MEDICARE, MEDICAID, SELFPAY | PROVIDERS: PCP Family Medicine; Visit Provider Thoracic Surgery (Cardiothoracic Vascular Surgery) | DX: I96 Gangrene, not elsewhere classified (principal); T81.31XD Disruption of external operation (surgical) wound, not elsewhere classified, subsequent encounter; Y83.8 Other surgical procedures as the cause of abnormal reaction of the patient, or of later complication, without mention of misadventure at the time of the procedure | CPT/HCPCS: 97597; A6220; A6446 ==

== ENCOUNTER → 2024-05-05 12:56 | Outpatient (BNVA) | payer MEDICARE, MEDICAID, SELFPAY | PROVIDERS: PCP Family Medicine; Visit Provider Thoracic Surgery (Cardiothoracic Vascular Surgery) | DX: T81.31XD Disruption of external operation (surgical) wound, not elsewhere classified, subsequent encounter (principal); Y83.8 Other surgical procedures as the cause of abnormal reaction of the patient, or of later complication, without mention of misadventure at the time of the procedure | CPT/HCPCS: 97597 ==

== ENCOUNTER 2024-05-09 06:07 | Outpatient (RCR) | payer MEDICARE, MEDICAID, SELFPAY | END 2024-06-07 23:59 | disposition home or self-care (01) | LOC: MPT 06:07 | PROVIDERS: PCP Family Medicine; Visit Provider Family Medicine | DX: R26.81 Unsteadiness on feet (principal); M62.81 Muscle weakness (generalized) | CPT/HCPCS: 97110; 97112 ==

== ENCOUNTER → 2024-05-19 14:19 | Outpatient (BNVA) | payer MEDICARE, MEDICAID, SELFPAY | PROVIDERS: PCP Family Medicine; Visit Provider Thoracic Surgery (Cardiothoracic Vascular Surgery) | DX: Z09 Encounter for follow-up examination after completed treatment for conditions other than malignant neoplasm (principal); Z87.2 Personal history of diseases of the skin and subcutaneous tissue | CPT/HCPCS: 99212 ==

== ENCOUNTER 2024-06-08 06:00 | Outpatient (RCR) | payer MEDICARE, MEDICAID, SELFPAY | END 2024-07-08 23:59 | disposition home or self-care (01) | LOC: MPT 06:00 | PROVIDERS: PCP Family Medicine; Visit Provider Family Medicine | DX: M62.81 Muscle weakness (generalized) (principal); R26.81 Unsteadiness on feet | CPT/HCPCS: 97110; 97112 ==

== ENCOUNTER 2024-07-09 06:00 | Outpatient (RCR) | payer MEDICARE, MEDICAID, SELFPAY | END 2024-08-07 23:59 | disposition home or self-care (01) | LOC: MPT 06:00 | PROVIDERS: PCP Family Medicine; Visit Provider Family Medicine | DX: M62.81 Muscle weakness (generalized) (principal); R26.81 Unsteadiness on feet | CPT/HCPCS: 97110; 97112; 97530 ==

== ENCOUNTER → 2024-07-12 13:58 | Outpatient (BNVA) | payer MEDICARE, MEDICAID, SELFPAY | PROVIDERS: PCP Family Medicine; Visit Provider Internal Medicine Cardiovascular Disease | DX: I48.91 Unspecified atrial fibrillation (principal); R06.02 Shortness of breath; I35.1 Nonrheumatic aortic (valve) insufficiency; I11.9 Hypertensive heart disease without heart failure; E78.5 Hyperlipidemia, unspecified; Z87.891 Personal history of nicotine dependence | CPT/HCPCS: 99214 ==

== ENCOUNTER 2024-08-08 06:00 | Outpatient (RCR) | payer MEDICARE, SELFPAY | END 2024-09-07 23:59 | disposition home or self-care (01) | LOC: MPT 06:00 | PROVIDERS: PCP Family Medicine; Visit Provider Family Medicine | DX: M62.81 Muscle weakness (generalized) (principal); R26.81 Unsteadiness on feet | CPT/HCPCS: 97110; 97112; 97116 ==

== ENCOUNTER → 2024-08-09 11:16 | Outpatient (BNVA) | payer MEDICARE, MEDICAID, SELFPAY | PROVIDERS: PCP Family Medicine; Referring Provider Family Medicine; Visit Provider Surgery | DX: K21.9 Gastro-esophageal reflux disease without esophagitis (principal); R13.10 Dysphagia, unspecified; K22.2 Esophageal obstruction; Z12.11 Encounter for screening for malignant neoplasm of colon | CPT/HCPCS: 99214 ==

== ENCOUNTER 2024-08-18 10:21 | Day surgery (SDC) | payer MEDICARE, MEDICAID, SELFPAY ==
[2024-08-18 10:50] VITALS: BP 152/91; PULSE 68; RESP 16; TEMP 36.6; O2SAT 96; BMI 35.9
[2024-08-18] MEDS: sodium chloride 0.9% 500 ML 15 ML IV (11:02)
--- NOTE | 2024-08-18 11:53 | ANES.PREANE2 ---
Pre-Anesthetic Assessment Height/Weight: Height 5 ft 11 in Weight 258 lb Temp Pulse Resp BP Pulse Ox O2 Del Method 97.8 F 68 16 152/91 96 Room Air 08/18/24 10:50 08/18/24 10:50 08/18/24 10:50 08/18/24 10:50 08/18/24 10:50 08/18/24 10:50 Preop Diagnosis: Schatzki's ring, colon cancer screening Operation Date: 08/18/24 11:45 Proposed Procedures p EGD Dilation W/ Balloon 19760, 03219, G0121, Z12.11, K22.2, R13.10, K21.9(Not Applicable) - Lucius Beltran DO s Colonoscopy(Not Applicable) - Lucius Beltran DO Was Beta Ilda taken within 24 hours: N/A Was Clonidine taken within 24 hours: N/A Last intake: Intake Last Liquid Date 08/17/24 Last Liquid Time 23:30 Last Solid Date 08/16/24 Last Solid Time 18:00 Social No alcohol and No tobacco Exam alert, oriented x 3, clear to auscultation bilaterally and regular rate & rhythm Airway Submandibular: within normal limits Cervical ROM: within normal limits Mallampati: Class II Comments: Comments: Multiple missing teeth, denies any loose Anesthetic Plan ASA status: 3 Anesthesia: MAC Other: No prior issues with anesthesia in the past Completed bowel prep Patient is very hard of hearing History of GERD on Protonix Patient previously had a ileostomy that was reversed as well as a Schatzki's ring History of CAD, negative stress test 2020 Patient is able to perform ADLs Plan for MAC anesthetic Medications/Allergies Home Medications Medication Instructions Recorded Confirmed Last Taken Type acetaminophen 325 mg capsule 325 mg PO DAILY PRN Pain 06/17/22 08/18/24 3 Weeks Ago History ~07/28/24 finasteride 5 mg tablet 5 mg PO DAILY 90 days #90 tabs 05/12/24 08/16/24 08/16/24 Rx oxybutynin chloride 10 mg 10 mg PO DAILY 90 days #90 tabs 05/12/24 08/16/24 08/16/24 Rx tablet,extended release 24 hr tamsulosin 0.4 mg capsule 0.4 mg PO BID 90 days #180 caps 05/12/24 08/16/24 08/16/24 Rx pantoprazole 40 mg tablet,delayed 40 mg PO DAILY 90 days #90 tabs 05/24/24 08/16/24 08/16/24 Rx release hydrocodone 5 mg-acetaminophen 325 1 tab PO BID PRN pain 30 days #60 07/28/24 08/18/24 1 Month Ago Rx mg tablet tabs ~07/19/24 sertraline 100 mg tablet 200 mg (2 x 100 mg) PO DAILY 90 07/28/24 08/16/24 08/16/24 Rx days #180 tabs Saccharomyces boulardii 250 mg 250 mg PO BID 08/16/24 08/16/24 08/16/24 History capsule (Florastor) potassium chloride 10 mEq 10 meq PO BID 08/16/24 08/16/24 08/16/24 History tablet,extended release(part/cryst) Allergies Allergy/AdvReac Type Severity Reaction Status Date / Time No Known Allergies Allergy Verified 07/28/24 13:35 Current Medications Generic Name Dose Route Start Last Admin Trade Name Freq PRN Reason Stop Dose Admin Sodium Chloride 500 mls @ 15 mls/hr 08/18/24 10:43 08/18/24 11:02 Sodium Chloride 0.9% IV 08/19/24 10:42 15 mls/hr .Q24H PRN Administration COLONOSCOPY FLUIDS PFSH Anesthesia Medical History (Updated 08/09/24 @ 14:17 by Lucius Beltran DO) Schatzki's ring CAD (coronary artery disease) Diastolic CHF Hiatal hernia 1980s Psoriasis Surgical History S/P ileostomy History of renal stent History of tonsillectomy and adenoidectomy Social History Smoking and tobacco/nicotine status: former use of tobacco/nicotine Alcohol intake: never Substance/Drug Use: never Data Anesthesia Cardiac Studies: Echocardiogram Ultrasound 09/29/20 Sestamibi Stress Test (Cardiology) 09/29/20
--- NOTE | 2024-08-18 13:03 | W.PM.OPSUD ---
Surgery/Procedure H&P Update DATE OF PROCEDURE: August 18, 2024 DATE H&P PERFORMED: 08/09/24 H&P UPDATE INFORMATION: I have reviewed H&P completed within last 30 days, I have examined patient prior to procedure and No changes to prior documentation PREOP DIAGNOSIS: Schatzki's ring, colon cancer screening PLANNED PROCEDURE: Operation Date: 08/18/24 11:45 Proposed Procedures p EGD Dilation W/ Balloon 99785, 01369, G0121, Z12.11, K22.2, R13.10, K21.9(Not Applicable) - DO angel Early Colonoscopy(Not Applicable) - Lucius Beltran DO
[2024-08-18 13:35] VITALS: BP 88/58; PULSE 68; RESP 14; TEMP 36.5; O2SAT 97
[2024-08-18 14:00] VITALS: BP 124/71; PULSE 77; RESP 18; O2SAT 95
--- NOTE | 2024-08-18 14:15 | ANE.PACU2 ---
Inpatient post-anesthesia follow up: Airway intact: Yes Vital signs: Temperature 97.7 F Pulse Rate 77 Respiratory Rate 18 Blood Pressure 124/71 Pulse Oximetry 95 Oxygen Delivery Me thod Room Air Oxygen Flow Rate 6 Fraction of Inspir ed Oxygen Hydration adequate: Yes Nausea and vomiting: No Pain level: 1 Mental status: Baseline
== END 2024-08-18 14:15 | disposition home or self-care (01) ==
PROVIDERS: PCP Family Medicine; Visit Provider Surgery
PROC: 0DJD8ZZ Inspection of Lower Intestinal Tract, Via Natural or Artificial Opening Endoscopic (ICD-10-PCS; CPT 45378; 2024-08-18 11:45)
DX: Z12.11 Encounter for screening for malignant neoplasm of colon (principal); K22.2 Esophageal obstruction; D12.5 Benign neoplasm of sigmoid colon; K57.30 Diverticulosis of large intestine without perforation or abscess without bleeding; K44.9 Diaphragmatic hernia without obstruction or gangrene; I25.10 Atherosclerotic heart disease of native coronary artery without angina pectoris; I50.30 Unspecified diastolic (congestive) heart failure; Z87.891 Personal history of nicotine dependence; K21.9 Gastro-esophageal reflux disease without esophagitis
CPT/HCPCS: 43239; 43249; 45385; 88305; J2704; J7040

== ENCOUNTER → 2024-09-02 09:12 | Outpatient (BNVA) | payer MEDICARE, SELFPAY | PROVIDERS: PCP Family Medicine; Visit Provider Surgery | DX: Z09 Encounter for follow-up examination after completed treatment for conditions other than malignant neoplasm (principal); R03.0 Elevated blood-pressure reading, without diagnosis of hypertension; R13.10 Dysphagia, unspecified; K22.2 Esophageal obstruction; D12.6 Benign neoplasm of colon, unspecified | CPT/HCPCS: 99214 ==

== ENCOUNTER 2024-09-08 06:00 | Outpatient (RCR) | payer MEDICARE, SELFPAY | END 2024-10-08 23:59 | disposition home or self-care (01) | LOC: MPT 06:00 | PROVIDERS: PCP Family Medicine; Visit Provider Family Medicine | DX: M62.81 Muscle weakness (generalized) (principal); R26.81 Unsteadiness on feet | CPT/HCPCS: 97110; 97112 ==

== ENCOUNTER 2024-10-09 06:30 | Outpatient (RCR) | payer MEDICARE, SELFPAY | END 2024-11-05 23:59 | disposition home or self-care (01) | LOC: MPT 06:30 | PROVIDERS: PCP Family Medicine; Visit Provider Family Medicine | DX: M62.81 Muscle weakness (generalized) (principal); R26.81 Unsteadiness on feet | CPT/HCPCS: 97110; 97112 ==

== ENCOUNTER 2024-11-06 06:00 | Outpatient (RCR) | payer MEDICARE, MEDICAID, SELFPAY | END 2024-12-06 23:59 | disposition home or self-care (01) | LOC: MPT 06:00 | PROVIDERS: PCP Family Medicine; Visit Provider Family Medicine | DX: M62.81 Muscle weakness (generalized) (principal); Z74.09 Other reduced mobility | CPT/HCPCS: 97110; 97112 ==

== ENCOUNTER 2024-12-07 05:00 | Outpatient (RCR) | payer MEDICARE, MEDICAID, SELFPAY | END 2025-01-05 23:59 | disposition home or self-care (01) | LOC: MPT 05:00 | PROVIDERS: PCP Family Medicine; Visit Provider Family Medicine | DX: M62.81 Muscle weakness (generalized) (principal); Z74.09 Other reduced mobility | CPT/HCPCS: 97110; 97112 ==

== ENCOUNTER 2025-01-06 05:00 | Outpatient (RCR) | payer MEDICARE, MEDICAID, SELFPAY | END 2025-02-05 23:59 | disposition home or self-care (01) | LOC: MPT 05:00 | PROVIDERS: PCP Family Medicine; Visit Provider Family Medicine | DX: M62.81 Muscle weakness (generalized) (principal); Z74.09 Other reduced mobility | CPT/HCPCS: 97110; 97112; 97116 ==

== ENCOUNTER → 2025-01-25 14:28 | Outpatient (BNVA) | payer MEDICARE, MEDICAID, SELFPAY | PROVIDERS: PCP Family Medicine; Visit Provider Family Medicine | DX: I10 Essential (primary) hypertension (principal); I51.9 Heart disease, unspecified | CPT/HCPCS: 80053; 80061; 83735; 85007; 85027 ==

== ENCOUNTER 2025-02-06 05:00 | Outpatient (RCR) | payer MEDICARE, MEDICAID, SELFPAY | END 2025-03-07 23:59 | disposition home or self-care (01) | LOC: MPT 05:00 | PROVIDERS: PCP Family Medicine; Visit Provider Family Medicine | DX: M62.81 Muscle weakness (generalized) (principal); R26.81 Unsteadiness on feet | CPT/HCPCS: 97110; 97112 ==

== ENCOUNTER 2025-03-08 05:00 | Outpatient (RCR) | payer MEDICARE, MEDICAID, SELFPAY | END 2025-04-07 23:59 | disposition home or self-care (01) | LOC: MPT 05:00 | PROVIDERS: PCP Family Medicine; Visit Provider Family Medicine | DX: M62.81 Muscle weakness (generalized) (principal); Z74.09 Other reduced mobility | CPT/HCPCS: 97110; 97112 ==

== ENCOUNTER → 2025-04-05 14:36 | Outpatient (BNVA) | payer MEDICARE, MEDICAID, SELFPAY | PROVIDERS: PCP Family Medicine; Visit Provider Family Medicine | DX: A09 Infectious gastroenteritis and colitis, unspecified (principal) | CPT/HCPCS: 80053; 85025 ==

== ENCOUNTER 2025-04-08 05:00 | Outpatient (RCR) | payer MEDICARE, MEDICAID, SELFPAY | END 2025-05-08 23:59 | disposition home or self-care (01) | LOC: MPT 05:00 | PROVIDERS: PCP Family Medicine; Visit Provider Family Medicine | DX: M62.81 Muscle weakness (generalized) (principal); R26.81 Unsteadiness on feet | CPT/HCPCS: 97110; 97112 ==

== ENCOUNTER → 2025-04-11 14:55 | Outpatient (BNVA) | payer MEDICARE, MEDICAID, SELFPAY | PROVIDERS: PCP Family Medicine; Visit Provider Family Medicine | DX: R05.9 Cough, unspecified (principal); T17.928A Food in respiratory tract, part unspecified causing other injury, initial encounter; W44.F3XA Food entering into or through a natural orifice, initial encounter | CPT/HCPCS: 71046 ==

== ENCOUNTER → 2025-04-20 13:48 | Outpatient (BNVA) | payer MEDICARE, MEDICAID, SELFPAY | PROVIDERS: PCP Family Medicine; Visit Provider Family Medicine | DX: R91.8 Other nonspecific abnormal finding of lung field (principal); I77.810 Thoracic aortic ectasia | CPT/HCPCS: 71046 ==

== ENCOUNTER 2025-04-29 09:07 | Outpatient (CLI) | payer MEDICARE, MEDICAID, SELFPAY ==
--- NOTE | 2025-04-29 10:00 | CT_ITS ---
WS: [id number] CT chest wo con [id number] HISTORY: R93.89 - Abnormal findings on diagnostic imaging of other... TECHNIQUE: Axial imaging performed through the thorax. Coronal and sagittal reformats are submitted. All CT scans at [facility] use at least one of these dose optimization techniques: automated exposure control; mA and/or kV adjustment per patient size (includes targeted exams where dose is matched to clinical indication); or iterative reconstruction. CONTRAST: None DLP: 551.91 mGy.cm COMPARISON: Chest radiograph 04/20/2025 Lungs and central airway: 2 mm granuloma LEFT upper lobe. Opacification noted at the LEFT lung base corresponds to a slightly elevated diaphragm with minimal compression of the lung. No pneumonia. Pleura: Normal. No pleural effusion. Heart and pericardium: Normal size heart with no pericardial effusion. Mediastinum and apoorva: No mediastinum or hilar adenopathy. Vessels: Mild atherosclerosis aorta. Calcification and ectasia of the ascending aorta but not aneurysmal at this time. Normal size pulmonary artery. Chest wall and lower neck: Bilateral gynecomastia. More prominent soft tissue in the RIGHT chest wall associated with the nipple. This may be gynecomastia. Upper abdomen: Prior cholecystectomy. No adrenal mass. Pancreatic atrophy. Osseous structures: Increase in thoracic kyphosis. Advanced LEFT AC joint arthritis. CT/CT chest wo con [id number] IMPRESSION: 1. Very slight elevation LEFT hemidiaphragm with lung compression. This corres ponds to the changes on recent chest x-ray radiograph. No mass or nodule. 2. Bilateral gynecomastia. Greater soft tissue associated with the RIGHT subar eolar region. If there is a palpable mass in this location diagnostic mammogram should be obtained and ultrasound. Differential is gynecomastia versus neoplas m. 3. Prior cholecystectomy. 4. Ectatic ascending aorta but not aneurysmal.
== END 2025-04-29 09:08 | disposition home or self-care (01) ==
LOC: RAD 09:09
PROVIDERS: PCP Family Medicine; Visit Provider Family Medicine
DX: R93.89 Abnormal findings on diagnostic imaging of other specified body structures (principal); R91.8 Other nonspecific abnormal finding of lung field; R06.02 Shortness of breath; N62 Hypertrophy of breast; Z87.891 Personal history of nicotine dependence
CPT/HCPCS: 71250

== ENCOUNTER 2025-05-09 05:00 | Outpatient (RCR) | payer MEDICARE, MEDICAID, SELFPAY | END 2025-06-07 23:59 | disposition home or self-care (01) | LOC: MPT 05:00 | PROVIDERS: PCP Family Medicine; Visit Provider Family Medicine | DX: M62.81 Muscle weakness (generalized) (principal); Z74.09 Other reduced mobility | CPT/HCPCS: 97110; 97112 ==

== ENCOUNTER → 2025-05-26 10:18 | Outpatient (BNVA) | payer MEDICARE, MEDICAID, SELFPAY | PROVIDERS: PCP Family Medicine; Referring Provider Family Medicine; Visit Provider Family Medicine | DX: G89.4 Chronic pain syndrome (principal); M54.9 Dorsalgia, unspecified; M25.78 Osteophyte, vertebrae; M43.17 Spondylolisthesis, lumbosacral region | CPT/HCPCS: 72100 ==

== ENCOUNTER 2025-07-07 13:53 | Outpatient (RCR) | payer MEDICARE, MEDICAID, SELFPAY | END 2025-07-08 23:59 | disposition home or self-care (01) | LOC: MPT 13:53 | PROVIDERS: PCP Family Medicine; Visit Provider Family Medicine | DX: M62.81 Muscle weakness (generalized) (principal); R26.81 Unsteadiness on feet | CPT/HCPCS: 97110; 97112; 97530 ==

== ENCOUNTER → 2025-08-01 13:56 | Outpatient (BNVA) | payer MEDICARE, MEDICAID, SELFPAY | PROVIDERS: PCP Family Medicine; Visit Provider Family Medicine | DX: N39.0 Urinary tract infection, site not specified (principal); R30.0 Dysuria | CPT/HCPCS: 81000; 87086 ==

== ENCOUNTER 2025-08-03 13:46 | Outpatient (RCR) | payer MEDICARE, MEDICAID, SELFPAY | END 2025-08-07 23:59 | disposition home or self-care (01) | LOC: MPT 13:46 | PROVIDERS: PCP Family Medicine; Visit Provider Family Medicine | DX: M62.81 Muscle weakness (generalized) (principal); R26.81 Unsteadiness on feet | CPT/HCPCS: 97110; 97112; 97530 ==

== ENCOUNTER → 2025-08-09 14:40 | Outpatient (BNVA) | payer MEDICARE, MEDICAID, SELFPAY | PROVIDERS: PCP Family Medicine; Visit Provider Family Medicine | DX: R30.0 Dysuria (principal) | CPT/HCPCS: 87086 ==

== ENCOUNTER 2025-08-19 15:19 | Outpatient (CLI) | payer MEDICARE, MEDICAID, SELFPAY ==
--- NOTE | 2025-08-19 15:45 | USCV_ITS ---
LuisaTerrence lopez Age: 80 Gender: M : 1945 Exam Date: 08/19/2025 15:33 Ordering Phys: Emiliana El MD Technologist: [place] [facility] [place]ication: hx of dvt, swelling HISTORY: hx of dvt and swelling PROCEDURES: Venous duplex imaging was performed in only the left lower extremity. Serial compression, augmentation maneuvers, and spectral Doppler flow evaluation were performed. FINDINGS: Examination was technically limited due to body habitus. Left lower extremity: there is partially occlusive DVT of CFV right lower extremity:. Occlusive DVT of proximal SFV to distal SFV.Suspect DVT deep profunda. Svt of GSV. There is subcutaneous left lower extremity edema noted. CONCLUSIONS There is evidence of extensive acute left lower extremity deep venous thrombosis. Report called by Sonam at time of exam. Physician to call patient with report. Dr. Madelyn Morris DO (Electronically Signed) Final Date: 19 August 2025 16:02 S
== END 2025-08-19 15:20 | disposition home or self-care (01) ==
LOC: RAD 15:23
PROVIDERS: PCP Family Medicine; Visit Provider Family Medicine
DX: Z86.718 Personal history of other venous thrombosis and embolism (principal); M79.669 Pain in unspecified lower leg; M79.89 Other specified soft tissue disorders
CPT/HCPCS: 93971

== ENCOUNTER 2025-09-07 13:55 | Outpatient (RCR) | payer MEDICARE, MEDICAID, SELFPAY | END 2025-09-07 23:59 | disposition home or self-care (01) | LOC: MPT 13:55 | PROVIDERS: PCP Family Medicine; Visit Provider Family Medicine | DX: M62.81 Muscle weakness (generalized) (principal); R26.81 Unsteadiness on feet | CPT/HCPCS: 97110; 97112 ==